=== PATIENT | male | born 1985 | race Caucasian/White ===

== ENCOUNTER 2020-04-29 11:25 | Outpatient (REF) | payer OTHER, SELFPAY ==
[2020-04-30 04:30] LABS: Syphilis Screen Nonreactive (Nonreactive)
[2020-04-30 04:46] LABS: HIV AB/AG Nonreactive (Nonreactive); HIV Num 1 0.05 S/CO (0.00-0.99)
[2020-04-30 17:47] LABS: Herpes Simplex Type 1 IgG <0.90 index; Herpes Simplex Type 2 IgG <0.90 index
[2020-05-06 18:17] LABS: Chlamydia Pneumoniae IgA <1:16 titer (<1:16); Chlamydia Pneumoniae IgM <1:10 titer (<1:10); Chlamydia Psittaci IgA <1:16 titer (<1:16); Chlamydia Psittaci IgG <1:64 titer (<1:64); Chlamydia Psittaci IgM <1:10 titer (<1:10); Chlamydia Trachomatis IgA <1:16 titer (<1:16); Chlamydia Trachomatis IgG <1:64 titer (<1:64); Chlamydia Trachomatis IgM <1:10 titer (<1:10)
== END 2020-04-29 11:26 | disposition home or self-care (01) ==
LOC: HO.LAB 11:25
PROVIDERS: PCP Internal Medicine; Visit Provider Nurse Practitioner Family
DX: Z11.3 Encounter for screening for infections with a predominantly sexual mode of transmission (principal); Z11.8 Encounter for screening for other infectious and parasitic diseases; Z11.4 Encounter for screening for human immunodeficiency virus [HIV]
CPT/HCPCS: 36415; 86631; 86632; 86695; 86696; 86780; 87389

== ENCOUNTER 2021-11-23 14:13 | Outpatient (REF) | payer OTHER, SELFPAY ==
[2021-11-23 14:34] LABS: MANUAL DIFF FLAG NO
[2021-11-23 14:42] LABS: Basophils Absolute Auto 0.1 X10*3/uL (0.0-0.2); Basophils Percent Auto 0.8 % (0-2); Eosinophils Absolute Auto 0.1 X10*3/uL (0.0-0.4); Eosinophils Percent Auto 1.6 % (0-4); Hematocrit 46.7 % (42.0-52.0); Hemoglobin 16.2 g/dl (14.0-18.0); Imm Gran Abs Auto 0.04 X10*3/uL (0.00-0.03); Imm Gran Pct Auto 0.5 % (0.0-0.4); Mean Corpuscular HGB Conc 34.7 g/dl (31.0-36.0); Mean Corpuscular Hemoglobin 29.7 pg (27.0-33.0); Mean Corpuscular Volume 85.5 fL (80.0-98.0); Mean Platelet Volume 9.6 fL (9.4-12.4); Monocytes Absolute Auto 0.4 X10*3/uL (0.1-1.2); Monocytes Percent Auto 4.9 % (2-11); Neutrophils Absolute Auto 4.4 x10*3/uL (2.0-8.3); Neutrophils Percent Auto 55.2 % (45-73); Platelet Count 196 X10*3/uL (160-400); Red Blood Count 5.46 X10*6/uL (4.60-5.80); Red Cell Distribution Width 13.5 % (11.0-16.0)
[2021-11-23 15:17] LABS: Alanine Aminotransferase 41 U/L (0-40); Albumin Level 4.6 g/dL (3.5-5.0); Alkaline Phosphatase 92 U/L (39-117); Anion Gap 17 (12-20); Aspartate Amino Transferase 27 U/L (5-37); Bilirubin Total 0.5 mg/dL (0.0-1.0); Blood Urea Nitrogen 11 mg/dL (9-16); Carbon Dioxide 20 mmol/L (22-29); Chloride 105 mmol/L (96-108); Cholesterol 179 mg/dL; Estimated Glomerular Filt Rate > 60; Glucose Fasting 91 mg/dL (60-99); HDL Cholesterol 33 mg/dL; LDL Cholesterol Calculated 128 mg/dl; Potassium 4.3 mmol/L (3.3-5.1); Sodium 138 mmol/L (135-145); Total Protein 7.3 g/dL (6.5-8.0); Triglycerides 93 mg/dL
[2021-11-23 15:27] LABS: TSH reflex Free T4 1.08 uIU/mL (0.32-4.0); Vitamin D 25-OH Total 3.8 ng/mL (>30)
[2021-11-23 17:10] LABS: Appearance Urine Clear; Color Urine Yellow; Glucose Urine UA Negative (Negative); Leukocyte Esterase Urine Negative (Negative); Nitrite Urine Negative (Negative); PH 5.5 (5.0-9.0); Specific Gravity - Urine >= 1.030 (1.005-1.025); UMIC TRIGGER UACC YES; Urine Blood Trace (Negative); Urine Ketones Trace mg/dL (Negative); Urine Protein Trace mg/dL (Neg-Trace)
[2021-11-23 17:29] LABS: Bacteria Urine None Seen (None Seen); Hyaline Casts Urine 0-2 /LPF (0-2); RBC Urine 0-2 /HPF (0-2); Squamous Epithelial Cell Urine 0-2 /HPF (0-2); WBC Urine 0-5 /HPF (0-5)
== END 2021-11-23 14:14 | disposition home or self-care (01) ==
LOC: HO.LAB 14:13
PROVIDERS: PCP Internal Medicine; Visit Provider Internal Medicine
DX: E55.9 Vitamin D deficiency, unspecified (principal); E78.00 Pure hypercholesterolemia, unspecified; I10 Essential (primary) hypertension
CPT/HCPCS: 36415; 80053; 80061; 81001; 81003; 82306; 84443; 85025

== ENCOUNTER 2022-05-30 14:34 | Outpatient (REF) | payer OTHER, SELFPAY ==
--- NOTE | ~2022-05-30 | XR_ITS ---
EXAMINATION: XR RIBS, RIGHT CLINICAL INFORMATION: Chest radiographs dated 11/20/2016. COMPARISON: None available. TECHNIQUE: 3 views of the right ribs were obtained. FINDINGS: Lungs are clear. No consolidation, pneumothorax, or pleural effusion. The cardiomediastinal silhouette and pulmonary vasculature are normal. Osseous structures are unremarkable. Ribs are intact. No fractures are identified. XR/XR ribs RT min 3V w CXR1V IMPRESSION: Unremarkable examination.
--- NOTE | ~2022-05-30 | US_ITS ---
EXAMINATION: US VENOUS ULTRASOUND WITH DOPPLER LOWER EXTREMITY, LEFT CLINICAL INFORMATION: Pain COMPARISON: None available. TECHNIQUE: Ultrasound of the deep veins is performed from the hip to the calf with compression sonography and color and pulse Doppler assessment. Spectral analysis with color-flow imaging is performed. FINDINGS: There is normal venous compression and respiratory variation and augmented flow. The visualized common femoral vein, superficial femoral vein, profunda femoral vein, popliteal vein, and the trifurcation region shows no evidence of deep venous thrombosis. There is no significant popliteal fossa cyst. If the patient's symptoms persist, followup ultrasound in 5 days 7 days might be of value to exclude proximal propagation from a non-visualized calf vein. US/US venous duplex LE LT IMPRESSION: No DVT demonstrated in the left lower extremity.
[2022-05-30 17:16] LABS: D Dimer High Sensitivity 217 NG/ML
[2022-05-30 17:31] LABS: Alanine Aminotransferase 40 U/L (0-40); Albumin Level 4.5 g/dL (3.5-5.0); Alkaline Phosphatase 85 U/L (39-117); Anion Gap 16 (12-20); Aspartate Amino Transferase 28 U/L (5-37); B Type Natriuretic Peptide 18 pg/mL (<100); Bilirubin Total 0.5 mg/dL (0.0-1.0); Blood Urea Nitrogen 11 mg/dL (9-16); Calcium 9.3 mg/dL (8.4-10.2); Carbon Dioxide 23 mmol/L (22-29); Chloride 104 mmol/L (96-108); Estimated Glomerular Filt Rate > 60; Glucose Random 76 mg/dL (60-115); Potassium 4.1 mmol/L (3.3-5.1); Sodium 139 mmol/L (135-145); Total Protein 7.1 g/dL (6.5-8.0)
[2022-05-30 17:53] LABS: Erythrocyte Sedimentation Rate 1 MM/HR (0-15)
== END 2022-05-30 14:35 | disposition home or self-care (01) ==
LOC: HO.US 14:34
PROVIDERS: PCP Internal Medicine; Visit Provider Internal Medicine
DX: M79.605 Pain in left leg (principal); M79.89 Other specified soft tissue disorders; I50.9 Heart failure, unspecified; R60.9 Edema, unspecified; M79.7 Fibromyalgia; T18.9XXA Foreign body of alimentary tract, part unspecified, initial encounter; R07.81 Pleurodynia
CPT/HCPCS: 36415; 71101; 80053; 83880; 85379; 85652; 93971

== ENCOUNTER 2022-09-08 15:29 | Outpatient (AMB) | payer OTHER, SELFPAY ==
[2022-09-08 15:35] VITALS: BP 142/80; PULSE 89; O2SAT 96; BMI 39.8
--- NOTE | 2022-09-08 15:35 | MHC.PC.OV ---
Vital Signs 09/08/22 15:35 Height 5 ft 7 in Weight 254 lb BMI 39.8 BP 142/80 H Blood Pressure Location Lt brachial Position Sitting Pulse 89 Pulse Source Pulse Oximeter Pulse Oximetry (%) 96 Oxygen Delivery Method Room Air Intake Visit Reasons: 3 month f/u Allergies acetaminophen [Tylox] Allergy (Unknown, Verified 09/08/22 16:14) swelling, rash Iodinated Contrast Media Allergy (Unknown, Verified 09/08/22 16:14) breathing problems oxycodone [Tylox] Allergy (Unknown, Verified 09/08/22 16:14) swelling, rash Medication List - Last Reconciled 09/08/22 by Jairon Rodriguez MD albuterol sulfate 90 mcg/actuation (Ventolin HFA) 2 puffs PO QID 30 days carisoprodol 350 mg PO QID PRN 28 days NS cetirizine 10 mg PO DAILY fluocinonide 0.05% 1 appl topical BID PRN fluticasone propionate 50 mcg/actuation 1 spray intranasal DAILY inhalational spacing device As directed ipratropium-albuterol 0.5 mg-3 mg(2.5 mg base)/3 mL 3 mL inhalation Q4H PRN ketoconazole 1% (Nizoral A-D) 1 appl topical 2XW 6 weeks montelukast (Singulair) 10 mg PO DAILY morphine 15 mg PO Q6H PRN 28 days morphine ER 30 mg PO Q12H 28 days naloxone 4 mg/actuation (Narcan) 4 mg intranasal Q2M PRN [NEBULIZER and all related supplies Use as directed] ProAir HFA 90 mcg/actuation (albuterol sulfate) 2 puffs inhalation Q6H PRN 30 days NS Symbicort 160-4.5 mcg/actuation (budesonide-formoterol) 2 puffs inhalation BID NS Tobacco use date assessed: 05/30/22 Dental Screening Dental Screen Date: 09/08/22 Did you have a dental visit in the last 12 months?: No Did you have a dental problem in the last 6 months where you did not have access to dental care?: No Was dental information given to patient?: No HPI 3 month f/u HPI Details Patient comes in today for his follow up visit States that he continues to experience chronic increased nasal and sinus congestion States that he and his family recently had to move out of their house after a recent inspection determined that the house that they have been living in for a long time is now on and have a double and can no longer be remediated and his previously scheduled sinus surgery at [facility] in [place] had to be canceled and postponed for now States that they have been living out of a local hotel room for the past couple of months now He denies any headaches or dizziness Denies any chest pains but states that his asthma has been acting up often lately and he needs to get a prescription for a new nebulizer No nausea/ vomiting; still has on and off abdominal pain States that he still has not been able to pass the piece of plastic fork that he supposedly swallowed several weeks ago States that he went to the ER at [facility] and they ordered some imaging studies on him but was told that they could not see any evidence of foreign object in his bowels No change in bowel habits noted but states that he still has on and off blood in the stool and he strongly believes that the piece of plastic for is still lodged somewhere in his bowels States that his chronic low back pain and joint pains remain adequately controlled on his current medications [facility] Medical History Asthma Chronic pansinusitis Depression Epilepsy Exposure to STD GERD without esophagitis Lumbar degenerative disc disease Obesity (BMI 30-39.9) Osteoporosis Pure hypercholesterolemia Scalp psoriasis Surgical History History of sinus surgery History of surgery Family History Father Medical history unknown Mother Cancer Social History Housing: House Alcohol intake: never Patient Tobacco Use Status: Never used Tobacco e-Cigarette/Vaping Use: Never Used Second Hand Smoke Exposure: Yes service: No Current occupational status: employed Current occupation: [employer] Cognitive needs: No Hearing needs: No Vision needs: No Questionnaire PHQ-9 Over the last 2 weeks, how often have you been bothered by any of the following problems? 1. Little interest or pleasure in doing things: several days 2. Feeling down, depressed, or hopeless: several days 3. Trouble falling or staying asleep, or sleeping too much: several days 4. Feeling tired or having little energy: several days 5. Poor appetite or overeating: not at all 6. Feeling bad about yourself - or that you are a failure or have let yourself or your family down: not at all 7. Trouble concentrating on things, such as reading the newspaper or watching television: not at all 8. Moving or speaking so slowly that other people could have noticed. Or the opposite - being so fidgety or restless that you have been moving around a lot more than usual: not at all 9. Thoughts that you would be better off or of hurting yourself in some way: not at all Total score: 4 Depression Screening Interpretation: Positive Depression Screening Follow-up: Existing condition and Follow-up Visit Requested [id number] - PHQ-9 Billing: Yes Source: Developed by Drs. Wily Narayanan, Emily Reynaga, Damian Kan and colleagues, with an educational chi from [employer]. Thrive Questionnaire Date Thrive assessed: 05/30/22 AUDIT C Alcohol Use Questionnaire (AUDIT-C) 1. How often do you have a drink containing alcohol?: Never 3. How often do you have six or more drinks on one occasion?: Never Total Score: 0 Score Reviewed/Action Taken: Yes DIMITRY-7 AMB Questionnaire DIMITRY-7 Date DIMITRY - 7 assessed: 05/30/22 Source: Developed by Drs. Wily Narayanan, Emily Reynaga, Damian Kan and colleagues, with an educational chi from [employer]. Review of Systems Const Reports fatigue, Denies fever(s) and Denies headache(s) ENT Denies dysphagia, Denies dizziness, Denies headache(s), Reports nasal congestion (on and off), Denies nasal discharge, Reports neck pain, Denies sinus pressure and Denies sore throat Card Denies chest pain, Denies palpitations and Reports dyspnea on exertion (on and off lately) Resp Reports chest congestion, Reports cough (on and off), Reports dyspnea on exertion (on and off lately) and Reports wheezing (at times) GI Reports abdominal pain (on and off over the RLQ), Reports hematochezia (at times ), Denies constipation, Denies dysphagia, Denies heartburn, Denies diarrhea, Denies nausea and Denies vomiting Denies dysuria, Denies nocturia and Denies urinary frequency Musc Reports back pain (chronic - increasing) and Reports neck pain Neuro Denies dizziness and Denies headache(s) Endo Reports fatigue and Denies palpitations Alexei/Lymph Details: increased swelling of the left leg and left foot Aller/Immun Reports wheezing (at times) Physical exam (Primary Care) Vital Signs: Last Vital Signs Pulse 89 09/08/22 15:35 BP 142/80 H 09/08/22 15:35 Pulse Ox 96 09/08/22 15:35 Oxygen Delivery Method Room Air 09/08/22 15:35 BMI result Body Mass Index 39.8 Tobacco/Smoking Status: Tobacco use Status Tobacco use date assessed 05/30/22 09/08/22 15:39 Patient Tobacco Use Status Never used Tobacco 09/08/22 15:39 e-Cigarette/Vaping Use Never Used 09/08/22 15:39 PHQ-9: PHQ-9 Score PHQ-9: Total score 4 09/10/22 11:13 Depression Screening Interpretation: Positive Depression Screening Follow-up: Existing condition and Follow-up Visit Requested Thrive Assessment: Date of Thrive Assessment Date Thrive assessed 05/30/22 09/08/22 15:39 Const General: no acute distress and alert HENMT Ears: TM's normal bilaterally and EAC's normal Throat: Yes posterior oropharynx normal and Yes tonsils normal (no TP congestion noted) Neck Neck: Yes no lymphadenopathy and Yes supple Resp Auscultation: no rales, rhonchi (scattered), wheezes (mild, occasionally) expiratory wheezes and diminished lung sounds bilateral Cardio Rate: regular rate Rhythm: regular rhythm Heart sounds: no murmurs GI Palpation (GI): Soft to palpation, Tenderness to palpation present (GI) in the RLQ (mild), no guarding, not rigid and No Rebound tenderness present Auscultation: normal bowel sounds Back/Spine/Pelvis Thoracic/Lumbar Spine: lumbar spinal tenderness Extrem General: Yes edema (3+ over the left lower leg and foot; 1+ over the right lower extremity) Assessment and Plan Assessment & Plan (1) Asthma: Code(s): J45.909 - Unspecified asthma, uncomplicated Qualifiers: Asthma complication type: uncomplicated Asthma persistence: persistent Asthma severity: moderate Qualified Code(s): J45.40 - Moderate persistent asthma, uncomplicated Plan: Patient's asthma appears to be acting up again lately Continue Symbicort Aerosol, 160-4.5 MCG/ACT, 2 puffs, Inhalation, Twice a day and Albuterol Sulfate HFA Aerosol Solution, 108 (90 Base) MCG/ACT, 2 puffs, Inhalation, four times a day as needed Per request, will provide with Rx for a nebulizer unit - instructed to start using his nebulizer QID PRN as soon as he gets it (2) Pure hypercholesterolemia: Code(s): E78.00 - Pure hypercholesterolemia, unspecified Plan: Reinforced low cholesterol diet Will recheck his labs in 3 months for follow-up (3) Lumbar degenerative disc disease: Code(s): M51.36 - Other intervertebral disc degeneration, lumbar region Plan: Reinforced activity and weight lifting restrictions MRI of the brain done last year (neurology wanted to be certain that his right leg (radicular) symptoms are not due to MS) reportedly came back normal Continue MS Contin Tablet Extended Release 12 Hour, 30 MG, 1 tablet, Orally, every 12 hrs, 28 days, 56 tablets, Refills 0, Morphine Sulfate Tablet, 15 MG, 1 tablet, Orally, 3 to 4 times a day as needed for increased pain, 28 days, 112 tablets, Refills 0 and Soma Tablet, 350 MG, 1 tablet, Orally, Four times a day as needed, 28 days, 112 tablets (4) Swallowed foreign body: Code(s): T18.9XXA - Foreign body of alimentary tract, part unspecified, initial encounter Qualifiers: Encounter type: sequela Qualified Code(s): T18.9XXS - Foreign body of alimentary tract, part unspecified, sequela Plan: Was worked up at the ER at [facility] a few months ago but they were unsuccessful in locating the broken off piece of plastic fork Patient went back a week later and had abdominal and pelvic CT with contrast this time but imaging studies came back negative Was advised that unless they can visualized the foreign body on imaging studies, there is not much they can do at this time (5) GERD without esophagitis: Code(s): K21.9 - Gastro-esophageal reflux disease without esophagitis Plan: Dietary restrictions reinforced (6) Chronic pansinusitis: Comment: S/P maxillary antrostomy and total ethmoidectomy back in September 2018, with significant improvement of his chronic symptoms initially - symptoms have been recurring frequently since Code(s): J32.4 - Chronic pansinusitis Plan: Continues to experience frequent/recurrent sinus congestion and pain despite surgical intervention Continue Moxifloxacin 400 mg QD Was seen and evaluated by ENT at [facility] in [place] for his chronic sinus congestion and was scheduled for corrective surgery there a few weeks ago but this was canceled due to his current housing issues States that he will call to reschedule once he is able to (7) Osteoporosis: Code(s): M81.0 - Age-related osteoporosis without current pathological fracture Qualifiers: Osteoporosis type: unspecified Presence of current pathological fracture: without current pathological fracture Qualified Code(s): M81.0 - Age-related osteoporosis without current pathological fracture Plan: BMD done back in 2015 showed significantly low BMD for his age Patient has not been taking his Actonel for a while now as he was unable to tolerate it Follow up with endocrinology as scheduled for management of his osteoporosis (8) Epilepsy: Code(s): G40.909 - Epilepsy, unspecified, not intractable, without status epilepticus Qualifiers: Epilepsy type: unspecified Intractability: not intractable Status epilepticus: without status epilepticus Qualified Code(s): G40.909 - Epilepsy, unspecified, not intractable, without status epilepticus Plan: Denies any seizures lately Follow up with neurology as scheduled (9) Depression: Code(s): F32.9 - Major depressive disorder, single episode, unspecified Qualifiers: Active/Remission status: currently active Depression Type: major depressive disorder Major depression episode severity: unspecified Major depression recurrence: recurrent Qualified Code(s): F33.9 - Major depressive disorder, recurrent, unspecified Plan: Was on Sertraline HCl Tablet, 50 MG QD in the past but patient apparently stopped taking it at some point although he is not sure exactly when States that he currently feels okay without any Rx for his mood Follow-up with Psychiatry as scheduled. (10) Obesity (BMI 30-39.9): Code(s): E66.9 - Obesity, unspecified Plan: Reinforced diet/exercise as tolerated/lose weight Plan Follow up in 3 months or PRN Orders: Orders Complete Blood Count Auto Diff 3 Months I10 - Essential (primary) hypertension Comprehensive [place]. Panel Fast 3 Months E78.00 - Pure hypercholesterolemia, unspecified Lipid Panel 3 Months E78.00 - Pure hypercholesterolemia, unspecified Microalbumin, Random (w Creat) 3 Months E11.9 - Type 2 diabetes mellitus without complications TSH reflex Free T4 3 Months E78.00 - Pure hypercholesterolemia, unspecified UA CC w/rflx Micro + Cult 3 Months R30.0 - Dysuria Vitamin D 25-OH Total 3 Months E55.9 - Vitamin D deficiency, unspecified Medications: Refilled [NEBULIZER and all related supplies] Use as directed 1 ea 0RF J45.40 - Moderate persistent asthma, uncomplicated Coding Level of Care Code Est Pt Level 4 (79707) Diagnoses Asthma J45.40 Asthma complication type: uncomplicated Asthma persistence: persistent Asthma severity: moderate Pure hypercholesterolemia E78.00 Lumbar degenerative disc disease M51.36 Swallowed foreign body T18.9XXS Encounter type: sequela GERD without esophagitis K21.9 Chronic pansinusitis J32.4 Osteoporosis M81.0 Osteoporosis type: unspecified Presence of current pathological fracture: without current pathological fracture Epilepsy G40.909 Epilepsy type: unspecified Intractability: not intractable Status epilepticus: without status epilepticus Depression F33.9 Active/Remission status: currently active Depression Type: major depressive disorder Major depression episode severity: unspecified Major depression recurrence: recurrent Obesity (BMI 30-39.9) E66.9
== END 2022-09-08 16:29 | disposition home or self-care (01) ==
PROVIDERS: PCP Internal Medicine; Visit Provider Internal Medicine
DX: J45.40 Moderate persistent asthma, uncomplicated (principal); K21.9 Gastro-esophageal reflux disease without esophagitis; G40.909 Epilepsy, unspecified, not intractable, without status epilepticus; F33.9 Major depressive disorder, recurrent, unspecified; E78.00 Pure hypercholesterolemia, unspecified; M51.36 Other intervertebral disc degeneration, lumbar region; T18.9XXS Foreign body of alimentary tract, part unspecified, sequela; J32.4 Chronic pansinusitis; M81.0 Age-related osteoporosis without current pathological fracture; E66.9 Obesity, unspecified
CPT/HCPCS: 99214

== ENCOUNTER 2023-03-12 15:36 | Outpatient (AMB) | payer OTHER, SELFPAY ==
[2023-03-12 15:49] VITALS: BP 124/80; PULSE 86; O2SAT 94; BMI 39.5
--- NOTE | 2023-03-12 15:49 | MHC.PC.OV ---
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: No Accompanied by: Self / Same As Patient Allergies acetaminophen [Tylox] Allergy (Unknown, Verified 03/12/23 17:09) swelling, rash Iodinated Contrast Media Allergy (Unknown, Verified 03/12/23 17:09) breathing problems oxycodone [Tylox] Allergy (Unknown, Verified 03/12/23 17:09) swelling, rash Medication List - Last Reconciled 03/13/23 by Jairon Rodriguez MD albuterol sulfate 90 mcg/actuation (Ventolin HFA) 2 puffs PO QID 30 days carisoprodol 350 mg PO QID PRN 28 days NS cetirizine 10 mg PO DAILY fluocinonide 0.05% 1 appl topical BID PRN fluticasone propionate 50 mcg/actuation 1 spray intranasal DAILY inhalational spacing device As directed ipratropium-albuterol 0.5 mg-3 mg(2.5 mg base)/3 mL 3 mL inhalation Q4H PRN montelukast (Singulair) 10 mg PO DAILY morphine 15 mg PO Q6H PRN 28 days morphine ER 30 mg PO Q12H 28 days naloxone 4 mg/actuation (Narcan) 4 mg intranasal Q2M PRN [NEBULIZER and all related supplies Use as directed] Symbicort 160-4.5 mcg/actuation (budesonide-formoterol) 2 puffs inhalation BID NS Tobacco use date assessed: 03/12/23 Dental Screening Dental Screen Date: 03/12/23 Did you have a dental visit in the last 12 months?: No Did you have a dental problem in the last 6 months where you did not have access to dental care?: No Was dental information given to patient?: No HPI 3mon f/u HPI Details Patient comes in today for his follow up visit States that he has been experiencing increasing pain in his right hip for the past few months He describes his hip pain as a feeling that he is sitting on broken glass and notes that the pain feels worse the longer he is on his feet He does not recall any recent injury or trauma to his right hip States that he continues to experience increased (chronic) nasal and sinus congestion and he has yet to contact [facility] in [place] to reschedule his sinus surgery, which he had to cancel last year when he and his family recently had to move out of their house when it was condemned and determined to no longer safe to live in States that they finally able to recently moved out of the hotel that they were living in into a rental and that he will try to contact [facility] to reschedule his surgery as soon as possible He denies any headaches or dizziness lately Denies any chest pains, no increased shortness of breath No nausea/ vomiting, no abdominal pain No change in bowel habits noted States that his chronic low back pain and joint pains remain adequately controlled on his current medications Admits that he did not get his previously ordered labs done as he forgot about them [facility] Medical History Obesity (BMI 30-39.9) Depression Epilepsy Osteoporosis GERD without esophagitis Lumbar degenerative disc disease Pure hypercholesterolemia Asthma Scalp psoriasis Exposure to STD Chronic pansinusitis Surgical History History of surgery History of sinus surgery Family History Father Medical history unknown Mother Cancer Social History Housing: House Alcohol intake: never Patient Tobacco Use Status: Never used Tobacco e-Cigarette/Vaping Use: Never Used Second Hand Smoke Exposure: Yes service: No Current occupational status: employed Current occupation: [employer] Cognitive needs: No Hearing needs: No Vision needs: No Questionnaire PHQ-9 Over the last 2 weeks, how often have you been bothered by any of the following problems? 1. Little interest or pleasure in doing things: several days 2. Feeling down, depressed, or hopeless: several days 3. Trouble falling or staying asleep, or sleeping too much: several days 4. Feeling tired or having little energy: several days 5. Poor appetite or overeating: not at all 6. Feeling bad about yourself - or that you are a failure or have let yourself or your family down: not at all 7. Trouble concentrating on things, such as reading the newspaper or watching television: not at all 8. Moving or speaking so slowly that other people could have noticed. Or the opposite - being so fidgety or restless that you have been moving around a lot more than usual: not at all 9. Thoughts that you would be better off or of hurting yourself in some way: not at all Total score: 4 Depression Screening Interpretation: Positive Depression Screening Follow-up: Existing condition, Follow-up Visit Requested and Declines treatment Depression Screening Done: Yes [id number] - PHQ-9 Billing: Yes Source: Developed by Drs. Wily Narayanan, Emily Reynaga, Damian Kan and colleagues, with an educational chi from [employer]. Thrive Questionnaire Date Thrive assessed: 03/12/23 I am a: Patient What is your living situation today?: I have a steady place to live Within the past 12 months, did the food you bought not last and you didn't have the money to get more?: Never true Within the past 12 months, did you worry whether your food would run out before you got money to buy more?: Never true Do you have trouble paying for medicines?: No Do you have trouble getting transportation to medical appointments?: No Do you have trouble paying your heating and electricity bill?: No Do you have trouble taking care of your child, family member or friend?: No Do you have trouble with day-to-day activities such as bathing, preparing meals, shopping, managing finances, etc.?: No Are you currently unemployed and looking for a job?: No Are you interested in more education?: No Please select the resources that you would like help with: None Currently or been in a relationship where the following occur: no concerns reported THRIVE Score: 0 AUDIT C Alcohol Use Questionnaire (AUDIT-C) 1. How often do you have a drink containing alcohol?: Never 3. How often do you have six or more drinks on one occasion?: Never Total Score: 0 Score Reviewed/Action Taken: Yes DIMITRY-7 AMB Questionnaire DIMITRY-7 Date DIMITRY - 7 assessed: 03/12/23 Feeling nervous, anxious, or on edge: 0 = Not at all Not being able to stop or control worryin = Not at all Worrying too much about different things: 0 = Not at all Trouble relaxin = Not at all Being so restless that it is hard to sit still: 0 = Not at all Becoming easily annoyed or irritable: 0 = Not at all Feeling afraid as if something awful might happen: 0 = Not at all Total DIMITRY-7 score (0-4 normal; 5-9 mild; 10-14 moderate; 15-21 severe): 0 Source: Developed by Drs. Wily Narayanan, Emily Reynaga, Damian Kan and colleagues, with an educational chi from [employer]. Review of Systems Const Denies chills, Reports fatigue, Denies fever(s) and Denies headache(s) ENT Denies dysphagia, Denies dizziness, Denies headache(s), Reports nasal congestion (on and off), Denies nasal discharge, Reports neck pain, Denies odynophagia, Denies sinus pressure and Denies sore throat Card Denies chest pain, Denies palpitations and Reports dyspnea on exertion (occasionally, usually when his asthma flares up) Resp Denies chest congestion, Denies cough, Denies pain on inspiration, Reports dyspnea on exertion (occasionally, usually when his asthma flares up) and Denies wheezing GI Denies abdominal pain, Denies constipation, Denies dysphagia, Denies heartburn, Denies diarrhea, Denies nausea, Denies odynophagia and Denies vomiting Denies dysuria, Denies nocturia and Denies urinary frequency Musc Reports back pain (chronic - increasing) and Reports neck pain Skin/Breast Denies rash Neuro Denies dizziness and Denies headache(s) Endo Reports fatigue and Denies palpitations Alexei/Lymph Details: increased swelling of the left leg and left foot Aller/Immun Denies wheezing Physical exam (Primary Care) Vital Signs: Last Vital Signs Pulse 86 03/12/23 15:49 BP 124/80 03/12/23 15:49 Pulse Ox 94 03/12/23 15:49 Oxygen Delivery Method Room Air 03/12/23 15:49 BMI result Body Mass Index 39.5 Tobacco/Smoking Status: Tobacco use Status Tobacco use date assessed 03/12/23 03/12/23 15:51 Patient Tobacco Use Status Never used Tobacco 03/12/23 15:51 e-Cigarette/Vaping Use Never Used 03/12/23 15:51 PHQ-9: PHQ-9 Score PHQ-9: Total score 4 03/12/23 17:12 Depression Screening Interpretation: Positive Depression Screening Follow-up: Existing condition, Follow-up Visit Requested and Declines treatment Thrive Assessment: Date of Thrive Assessment Date Thrive assessed 03/12/23 03/12/23 15:51 Currently or been in a relationship where the following occur: no concerns reported Const General: no acute distress and alert HENMT Ears: TM's normal bilaterally and EAC's normal Throat: Yes posterior oropharynx normal and Yes tonsils normal (no TP congestion noted) Neck Neck: Yes no lymphadenopathy and Yes supple Resp Auscultation: clear to auscultation bilaterally, no crackles, no rales and no wheezes Cardio Rate: regular rate Rhythm: regular rhythm Heart sounds: no murmurs GI Palpation (GI): Soft to palpation and nontender Auscultation: normal bowel sounds General: Yes no CVA tenderness Back/Spine/Pelvis Back: no CVA tenderness Thoracic/Lumbar Spine: lumbar spinal tenderness Skin Rashes: no rashes Extrem General: Yes no clubbing, cyanosis or edema Right lower extremity: hip/thigh Details: tenderness Location: of the hip Assessment and Plan Assessment & Plan (1) Right hip pain: Code(s): M25.551 - Pain in right hip Plan: Will send patient for x-rays of the right hip for further evaluation (2) Asthma: Code(s): J45.909 - Unspecified asthma, uncomplicated Qualifiers: Asthma complication type: uncomplicated Asthma persistence: persistent Asthma severity: moderate Qualified Code(s): J45.40 - Moderate persistent asthma, uncomplicated Plan: Patient's asthma appears to be better controlled lately Continue Symbicort 160-4.5 mcg 2 inhalations BID and Albuterol Sulfate HFA Aerosol Solution, 108 (90 Base) MCG/ACT, 2 inhalations Q 6 hours PRN (3) Pure hypercholesterolemia: Code(s): E78.00 - Pure hypercholesterolemia, unspecified Plan: Reinforced low cholesterol diet Will recheck his labs and fasting lipids ALVARADO for follow-up - his previous lab orders are updated (4) Lumbar degenerative disc disease: Code(s): M51.36 - Other intervertebral disc degeneration, lumbar region Plan: Reinforced activity and weight lifting restrictions Patient had MRI of the brain done a couple of years ago as neurology wanted to be certain that his right leg (radicular) symptoms are not due to MS - MRI reportedly came back normal Continue MS Contin ER 30 MG Q 12 hours, Morphine Sulfate 15 MG 3 to 4 times a day as needed for increased pain and Soma 350 MG four times a day as needed (5) GERD without esophagitis: Code(s): K21.9 - Gastro-esophageal reflux disease without esophagitis Plan: Dietary restrictions reinforced (6) Chronic pansinusitis: Comment: S/P maxillary antrostomy and total ethmoidectomy back in September 2018, with significant improvement of his chronic symptoms initially - symptoms have been recurring frequently since Code(s): J32.4 - Chronic pansinusitis Plan: Patient continues to experience frequent/recurrent sinus congestion and pain despite past surgical intervention He was seen and evaluated by ENT at [facility] in [place] for his chronic sinus congestion and was scheduled for corrective surgery there last year but patient canceled his surgery due to housing issues with his family States that he will call them to reschedule his surgery once everything has settled down and he feels ready to get the surgery done (7) Osteoporosis: Code(s): M81.0 - Age-related osteoporosis without current pathological fracture Qualifiers: Osteoporosis type: unspecified Presence of current pathological fracture: without current pathological fracture Qualified Code(s): M81.0 - Age-related osteoporosis without current pathological fracture Plan: BMD done back in 2015 showed significantly low BMD for his age Patient has not been taking his Actonel for a while now as he was unable to tolerate it Follow up with endocrinology as scheduled for management of his osteoporosis (8) Epilepsy: Code(s): G40.909 - Epilepsy, unspecified, not intractable, without status epilepticus Qualifiers: Epilepsy type: unspecified Intractability: not intractable Status epilepticus: without status epilepticus Qualified Code(s): G40.909 - Epilepsy, unspecified, not intractable, without status epilepticus Plan: Patient denies having any seizures lately Follow up with neurology as scheduled (9) Depression: Code(s): F32.9 - Major depressive disorder, single episode, unspecified Qualifiers: Active/Remission status: currently active Depression Type: major depressive disorder Major depression episode severity: unspecified Major depression recurrence: recurrent Qualified Code(s): F33.9 - Major depressive disorder, recurrent, unspecified Plan: Was on Sertraline HCl Tablet, 50 MG QD in the past but patient apparently stopped taking it at some point although he is not sure exactly when States that he currently feels okay without any Rx for his mood Follow-up with Psychiatry as scheduled. (10) Obesity (BMI 30-39.9): Code(s): E66.9 - Obesity, unspecified Plan: Reinforced diet/exercise as tolerated/lose weight Plan Follow up in 3 months Orders: Orders XR hip RT min 2V 03/12/23 M25.551 - Pain in right hip Coding Level of Care Code Est Pt Level 4 (29019) Diagnoses Right hip pain M25.551 Moderate persistent asthma without complication J45.40 Asthma complication type: uncomplicated Asthma persistence: persistent Asthma severity: moderate Pure hypercholesterolemia E78.00 Lumbar degenerative disc disease M51.36 GERD without esophagitis K21.9 Chronic pansinusitis J32.4 Osteoporosis without current pathological fracture, unspecified osteoporosis type M81.0 Osteoporosis type: unspecified Presence of current pathological fracture: without current pathological fracture Nonintractable epilepsy without status epilepticus, unspecified epilepsy type G40.909 Epilepsy type: unspecified Intractability: not intractable Status epilepticus: without status epilepticus Episode of recurrent major depressive disorder, unspecified depression episode severity F33.9 Active/Remission status: currently active Depression Type: major depressive disorder Major depression episode severity: unspecified Major depression recurrence: recurrent Obesity (BMI 30-39.9) E66.9
== END 2023-03-12 17:19 | disposition home or self-care (01) ==
PROVIDERS: PCP Internal Medicine; Visit Provider Internal Medicine
DX: G40.909 Epilepsy, unspecified, not intractable, without status epilepticus (principal); F33.9 Major depressive disorder, recurrent, unspecified; E66.9 Obesity, unspecified; Z68.39 Body mass index [BMI] 39.0-39.9, adult; M25.551 Pain in right hip; J45.40 Moderate persistent asthma, uncomplicated; E78.00 Pure hypercholesterolemia, unspecified; M51.36 Other intervertebral disc degeneration, lumbar region; K21.9 Gastro-esophageal reflux disease without esophagitis; J32.4 Chronic pansinusitis; M81.0 Age-related osteoporosis without current pathological fracture
CPT/HCPCS: 99214

== ENCOUNTER 2023-03-13 15:28 | Outpatient (REF) | payer OTHER, SELFPAY ==
--- NOTE | ~2023-03-13 | XR_ITS ---
EXAMINATION: XR HIP, RIGHT CLINICAL INFORMATION: Pain. COMPARISON: Radiographs dated 10/11/2011. TECHNIQUE: AP and frog-leg lateral views of the right hip. FINDINGS: No fracture. Alignment is anatomic. Hip joint space is maintained. Soft tissues are unremarkable. XR/XR hip RT w [id number] IMPRESSION: Normal right hip.
[2023-03-13 15:44] LABS: MANUAL DIFF FLAG NO
[2023-03-13 17:03] LABS: Appearance Urine Clear; Color Urine Yellow; Glucose Urine UA Negative (Negative); Leukocyte Esterase Urine Negative (Negative); Nitrite Urine Negative (Negative); Urine Blood Negative (Negative); Urine Ketones Negative (Negative); Urine Protein Negative (Neg-Trace)
[2023-03-13 17:11] LABS: Basophils Percent Auto 0.5 % (0-2); Eosinophils Absolute Auto 0.2 X10*3/uL (0.0-0.4); Eosinophils Percent Auto 2.7 % (0-4); Hemoglobin 16.4 g/dl (14.0-18.0); Imm Gran Abs Auto 0.04 X10*3/uL (0.00-0.03); Imm Gran Pct Auto 0.5 % (0.0-0.4); Lymphocytes Absolute Auto 3.5 X10*3/uL (1.2-4.9); Lymphocytes Percent Auto 41.4 % (20-40); Mean Corpuscular HGB Conc 34.2 g/dl (31.0-36.0); Mean Corpuscular Hemoglobin 28.9 pg (27.0-33.0); Mean Corpuscular Volume 84.7 fL (80.0-98.0); Monocytes Absolute Auto 0.5 X10*3/uL (0.1-1.2); Monocytes Percent Auto 6.4 % (2-11); Neutrophils Absolute Auto 4.1 x10*3/uL (2.0-8.3); Neutrophils Percent Auto 48.5 % (45-73); Platelet Count 195 X10*3/uL (160-400); Red Blood Count 5.67 X10*6/uL (4.60-5.80); Red Cell Distribution Width 12.9 % (11.0-16.0); White Blood Count 8.4 X10*3/uL (4.8-10.8)
[2023-03-13 17:38] LABS: Alanine Aminotransferase 41 U/L (0-40); Albumin Level 4.3 g/dL (3.5-5.0); Alkaline Phosphatase 74 U/L (39-117); Anion Gap 13 (12-20); Aspartate Amino Transferase 30 U/L (5-37); Bilirubin Total 0.4 mg/dL (0.0-1.0); Blood Urea Nitrogen 10 mg/dL (9-16); Calcium 9.3 mg/dL (8.4-10.2); Carbon Dioxide 27 mmol/L (22-29); Chloride 104 mmol/L (96-108); Cholesterol 218 mg/dL (<200); Estimated Glomerular Filt Rate > 60; Glucose Fasting 85 mg/dL (60-99); HDL Cholesterol 40 mg/dL (>40); LDL Cholesterol Calculated 156 mg/dL (<100); Potassium 3.9 mmol/L (3.3-5.1); Sodium 140 mmol/L (135-145); Total Protein 7.3 g/dL (6.5-8.0); Triglycerides 111 mg/dL (<150)
[2023-03-13 17:51] LABS: Creatinine Urine 188.96 mg/dL; Microalbumin Urine < 5.0 mg/L
[2023-03-13 17:55] LABS: TSH reflex Free T4 0.83 uIU/mL (0.32-4.0); Vitamin D 25-OH Total 7.4 ng/mL (>30)
== END 2023-03-13 15:29 | disposition home or self-care (01) ==
LOC: HO.LAB 15:28
PROVIDERS: PCP Internal Medicine; Visit Provider Internal Medicine
DX: I10 Essential (primary) hypertension (principal); E78.00 Pure hypercholesterolemia, unspecified; E11.9 Type 2 diabetes mellitus without complications; R30.0 Dysuria; E55.9 Vitamin D deficiency, unspecified
CPT/HCPCS: 36415; 73502; 80053; 80061; 81003; 82043; 82306; 82570; 84443; 85025

== ENCOUNTER 2023-03-18 12:59 | Emergency (ER) | payer OTHER, SELFPAY ==
--- NOTE | ~2023-03-18 | CT_ITS ---
EXAMINATION: CT ABDOMEN AND PELVIS WITHOUT CONTRAST CLINICAL INFORMATION: Right groin/hip pain, question fracture, appendicitis, stone COMPARISON: None available. TECHNIQUE: Multidetector volumetric imaging was performed from the superior aspect of the liver through the pubic symphysis. Sagittal and coronal reformatted images were obtained on the technologist's workstation. This CT examination was performed using dose optimization techniques as appropriate, variously including the following: *Automated exposure control *Adjustment of mA and/or kV according to patient size (this includes techniques or standardized protocols for targeted exams where dose is matched to indication/reason for exam; i.e. extremities or head) *Use of iterative reconstruction technique DLP: 855 mGy-cm FINDINGS: Evaluation of solid organs, vascular structures, and bowel wall limited in the absence of intravenous contrast. LUNG BASES: Unremarkable. LIVER AND BILIARY TREE: Mild diffuse hepatic steatosis. GALLBLADDER: Unremarkable. PANCREAS: Marked diffuse pancreatic fatty infiltration/atrophy. SPLEEN: Unremarkable. ADRENAL GLANDS: Unremarkable. KIDNEYS AND URETERS: Unremarkable. GASTROINTESTINAL TRACT: Unremarkable. Normal appendix.. VASCULAR: Circumaortic left renal vein, a normal anatomic variant. Accessory or replaced right renal artery arises from the superior mesenteric artery and accessory left hepatic artery arises from the left gastric artery, also anatomic variants. Otherwise unremarkable. LYMPH NODES: No lymphadenopathy. PERITONEUM: No ascites. BLADDER: Unremarkable. PELVIC VISCERA: Unremarkable. ABDOMINAL AND PELVIC WALL: Unremarkable. Normal appearance of the visualized right inguinal/groin soft tissues. OSSEOUS STRUCTURES: Unremarkable. CT/CT abdomen pelvis wo IV con IMPRESSION: 1. No acute abnormality in the abdomen or pelvis. Specifically, no urinary tract calculi or evidence of appendicitis. 2. Mild diffuse hepatic steatosis. Marked diffuse pancreatic fatty infiltration/atrophy.
[2023-03-18 13:27] VITALS: BP 145/99; PULSE 95; RESP 16; TEMP 36.2; O2SAT 96; BMI 39.5
--- NOTE | 2023-03-18 13:32 | ED_ITS ---
HPI - General Adult General Chief complaint: Extremity Injury, Lower Stated complaint: R leg pain into hip Time Seen by Provider: 03/18/23 17:06 Source: patient Mode of arrival: ambulatory Limitations: no limitations History of Present Illness HPI narrative: 38 yo male with pmhx of osteoarthritis and osteoporosis presents to the ED c/o R hip pain. Pt states pain started 4 weeks ago but become unbearable last night as he felt as if his hip was dislocated, or out of place, and pushed it back in hard . Pt states he is having parasthesia in his loya, outer R thigh and bottom of foot, he is extremely uncomfortable when sitting or lying down. Pt reports an extensive history of sciatic pain and nerve damage to his R hip. He denies any bowel/urinary changes or back pain. Patient states that he follows with pain specialists for chronic pain. Onset (ago): week(s) (4) Location: lower extremity (R hip) Radiation: extremity (radiates to loya, outer thigh, bottom of R foot ) Severity: mild Severity scale (1-10): 3 Quality: burning and stabbing Pain Consistency: constant Relieving factors: none Exacerbating factors: other (sitting down, laying down) Associated symptoms: denies other symptoms Treatments prior to arrival: none Related Data Home Medications Medication Instructions Recorded Confirmed ipratropium 0.5 mg-albuterol 3 mg 3 ml inhalation Q4H PRN 01/20/20 03/12/23 (2.5 mg base)/3 mL nebulization soln montelukast 10 mg tablet 10 mg PO DAILY 01/20/20 03/12/23 (Singulair) Previous Rx's Medication Instructions Recorded albuterol sulfate 90 mcg/actuation 2 puff PO QID 30 days #18 grams 04/07/20 aerosol inhaler (Ventolin HFA) inhalational spacing device #2 ea 04/21/21 fluticasone propionate 50 1 spray intranasal DAILY #16 mL 02/27/22 mcg/actuation nasal spray,suspension naloxone 4 mg/actuation nasal 4 mg intranasal Q2M PRN opioid 05/10/22 spray (Narcan) overdose #2 ea NEBULIZER and all related supplies #1 ea 09/08/22 fluocinonide 0.05 % topical cream 1 appl topical BID PRN rash #60 12/11/22 grams Symbicort 160 mcg-4.5 2 puff inhalation BID #10.2 grams 01/03/23 mcg/actuation HFA aerosol inhaler (budesonide-formoterol) morphine 15 mg immediate release 15 mg PO Q6H PRN pain 28 days #112 02/27/23 tablet tabs cetirizine 10 mg tablet 10 mg PO DAILY #90 tabs 03/04/23 morphine 30 mg tablet,extended 30 mg PO Q12H 28 days #56 tabs 03/06/23 release carisoprodol 350 mg tablet 350 mg PO QID PRN muscle pain 28 03/16/23 days #112 tabs Allergies Allergy/AdvReac Type Severity Reaction Status Date / Time Iodinated Contrast Media Allergy Unknown breathing Verified 03/18/23 13:27 problems oxycodone [Tylox] Allergy Unknown swelling, Verified 03/18/23 13:27 rash Review of Systems 2 Constitutional: Constitutional: Reports no additional constitutional complaints, Denies chills, Denies fever(s) and Denies night sweats Eyes: Eyes: Reports no additional eye complaints, Denies blurry vision, Denies change in vision, Denies diplopia, Denies eye discharge, Denies loss of vision and Denies eye pain ENT: Denies dizziness Cardiovascular: Cardiovascular: Reports no additional cardiovascular complaints, Denies chest pain, Denies lightheadedness, Denies Loss of Consciousness and Denies dyspnea Respiratory: Respiratory: Reports no additional respiratory complaints and Denies dyspnea Gastrointestinal: Gastrointestinal: Reports no additional gastrointestinal complaints, Denies abdominal pain, Denies melena, Denies hematochezia, Denies change in bowel habits and Denies change in stool character Genitourinary: Genitourinary: Reports no additional male genitourinary complaints, Denies hematuria, Denies oliguria, Denies difficulty urinating, Denies dysuria, Denies urinary frequency, Denies urinary hesitancy, Denies urinary incontinence and Denies urinary urgency Musculoskeletal: Musculoskeletal: Reports no additional musculoskeletal complaints, Denies numbness and Denies tingling Comments: right hip pain Neurologic: Denies dizziness, Denies loss of vision, Denies numbness and Denies tingling Psychiatric: Psychiatric: Reports no additional psychiatric complaints Endocrine: Endocrine: Reports no additional endocrine complaints Hematologic/Lymphatic: Hematologic/Lymphatic: Reports no additional hematologic/lymphatic complaints Allergic/Immunologic: Allergic/Immunologic: Reports no additional allergic/immunologic complaints PMFSH Past Medical History Attestation statement: The following information was validated with the patient. Source: old records reviewed and nursing notes reviewed Medical History Obesity (BMI 30-39.9) Depression Epilepsy Osteoporosis GERD without esophagitis Lumbar degenerative disc disease Pure hypercholesterolemia Asthma Scalp psoriasis Exposure to STD Chronic pansinusitis Surgical History History of surgery History of sinus surgery Family History Family History Father Medical history unknown Mother Cancer Social History Social History Housing: House Alcohol intake: never Patient Tobacco Use Status: Never used Tobacco e-Cigarette/Vaping Use: Never Used Second Hand Smoke Exposure: Yes Advance Directives: No Advance Directives Information Provided: Yes service: No Current occupational status: employed 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 Cognitive needs: No Hearing needs: No Vision needs: No Physical Exam ED Vital Signs: Vital Signs - 24 hr 03/18/23 13:27 Temperature 97.1 F Pulse Rate 95 Respiratory Rate 16 Blood Pressure 145/99 H Pulse Oximetry 96 Oxygen Delivery Method Room Air BMI result Body Mass Index 39.5 Const General: cooperative, no acute distress, alert and awake Nutritional Appearance: well nourished Orientation/consciousness: patient oriented x3 Limitations: no limitations HENMT Head: Yes normal to inspection and Yes atraumatic Ears: hearing grossly normal bilaterally and external ears normal General nose exam: Normal external nose present, no nasal discharge noted and no epistaxis Face and sinus: Yes normal facial exam, No abrasion and No laceration Mouth: Normal oral and palatal mucosa present, no drooling and no muffled voice Eyes General: appearance normal, both eyes and all related structures Periorbital: periorbital findings normal Eyelids: Yes eyelids normal Conjunctivae: conjunctivae normal Pupils: Equal, round and reactive pupils present EOM: EOMs intact bilaterally Neck Neck: Yes normal visual inspection, Yes full ROM and Yes no lymphadenopathy Chest Chest palpation & inspection: normal inspection of the chest Resp Effort & Inspection: normal respiratory effort and able to speak in complete sentences GI Inspection: Yes normal to inspection General: Yes no CVA tenderness Back/Spine/Pelvis Back: no CVA tenderness Cervical Spine: normal cervical lordosis Thoracic/Lumbar Spine: thoracic and lumbar spine normal to inspection Pelvis: no pain with anterior-posterior compression Neuro General: patient oriented x3 and moves all extremities Cranial nerves: Yes Equal, round and reactive pupils present Cognition (Neuro): normal cognition Motor exam (neuro): 5/5 motor strength present throughout Sensory Exam: Normal double simultaneous stimulation for sensation Coordination: [id number] test normal Extrem General: Yes normal to inspection, Yes full ROM and Yes capillary refill normal Psych Appearance: grossly normal Mental Status: mental status grossly normal Affect: normal affect Attitude: cooperative Thought process: Normal thought process present Thought content: Normal thought content present Insight: Good insight present (Psych) Course Course Course Narrative: RME: 38 yold male presents to the ED for right hip/groin/back pain radiating down leg. patient has known pmh of right hip fracture. no new trauma or leg swelling. labs, UA, CT scan ordered Medical Decision Making Medical Decision Making [facility] Narrative: Patient is a 38 year old assigned male at with a history of chronic pain presenting to the emergency department today with right pain. Patient's physical exam was unremarkable. Patient's blood work was unremarkable. Patient's urine showed no acute process. Patient's abdominal / pelvis CT showed no acute process. I explained my physical exam findings as well as all test results to the patient. I answered all questions asked by the patient. I stressed the importance of the patient taking his medication as prescribed. I stressed the importance of the patient following up with his primary care provider and his pain specialist. I stressed the importance of the patient returning to the emergency department immediately if his symptoms were to worsen or if he were to develop any dizziness, shortness of breath, difficulty breathing, chest pain, blurry vision, loss of vision, nausea, vomiting, abdominal pain, fever, chills, back pain, or any other complaints. Patient verbalized agreement and understanding with this treatment plan and discharge. Differential Diagnosis Differential Diagnoses: The differential diagnosis associated with the presentation includes hip dislocation hip fracture hip strain hip pain Admission/Observation Consideration of admission/observation: Escalation of care including admission/observation considered Patient would have been admitted to the hospital had his work up had any findings where hospital admission was appropriate and his clinical presentation warranted hospital admission. Lab Data [facility] Lab Attestation statement: I reviewed the patient's lab results. My interpretation of these results are in the MDM Rationale portion of this note. 03/18/23 14:12 03/18/23 14:12 Labs: Lab Results 03/18/23 03/18/23 Range/Units 14:12 16:11 WBC 7.7 (4.8-10.8) X10*3/uL RBC 5.79 (4.60-5.80) X10*6/uL Hgb 16.9 (14.0-18.0) g/dl Hct 48.3 (42.0-52.0) % MCV 83.4 (80.0-98.0) fL MCH 29.2 (27.0-33.0) pg MCHC 35.0 (31.0-36.0) g/dl RDW 12.8 (11.0-16.0) % Plt Count 198 (160-400) X10*3/uL MPV 9.2 L (9.4-12.4) fL Immature Gran % (Auto) 0.4 (0.0-0.4) % Neut % (Auto) 59.6 (45-73) % Lymph % (Auto) 32.3 (20-40) % [place] % (Auto) 4.3 (2-11) % Eos % (Auto) 2.9 (0-4) % Baso % (Auto) 0.5 (0-2) % Lymph # (Auto) 2.5 (1.2-4.9) X10*3/uL [place] # (Auto) 0.3 (0.1-1.2) X10*3/uL Eos # (Auto) 0.2 (0.0-0.4) X10*3/uL Baso # (Auto) 0.0 (0.0-0.2) X10*3/uL Abs Immat Gran (auto) 0.03 (0.00-0.03) X10*3/uL Absolute Neuts (auto) 4.6 (2.0-8.3) x10*3/uL Absolute Nucleated RBC 0.000 (0.0-0.012) X10*3/uL Nucleated RBC % (auto) 0.0 (0.0-0.2) /100WBC Sodium 139 (135-145) mmol/L Potassium 4.1 (3.3-5.1) mmol/L Chloride 104 (96-108) mmol/L Carbon Dioxide 25 (22-29) mmol/L Anion Gap 14 (12-20) BUN 10 (9-16) mg/dL Creatinine 1.02 (0.5-1.4) mg/dL Estim Creat Clear Calc 117.4 Estimated GFR > 60 Random Glucose 98 (60-115) mg/dL Calcium 9.3 (8.4-10.2) mg/dL Total Bilirubin 0.5 (0.0-1.0) mg/dL AST 29 (5-37) U/L ALT 42 H (0-40) U/L Alkaline Phosphatase 69 (39-117) U/L Total Protein 7.5 (6.5-8.0) g/dL Albumin 4.5 (3.5-5.0) g/dL Urine Color Yellow Urine Appearance Clear Urine pH 6.0 (5.0-9.0) Ur Specific [place] 1.020 (1.005-1.025) Urine Protein Negative (Neg-Trace) mg/dL Urine Glucose (UA) Negative (Negative) mg/dL Urine Ketones Negative (Negative) mg/dL Urine Blood Negative (Negative) Urine Nitrite Negative (Negative) Ur Leukocyte Esterase Negative (Negative) Independent Interpretation I performed an independent interpretation of an: CT Scan Interpretation: My interpretation is in agreement with the radiologist's impression of this imaging study. - EXAMINATION: CT ABDOMEN AND PELVIS WITHOUT CONTRAST CLINICAL INFORMATION: Right groin/hip pain, question fracture, appendicitis, stone COMPARISON: None available. TECHNIQUE: Multidetector volumetric imaging was performed from the superior aspect of the liver through the pubic symphysis. Sagittal and coronal reformatted images were obtained on the technologist's workstation. This CT examination was performed using dose optimization techniques as appropriate, variously including the following: *Automated exposure control *Adjustment of mA and/or kV according to patient size (this includes techniques or standardized protocols for targeted exams where dose is matched to indication/reason for exam; i.e. extremities or head) *Use of iterative reconstruction technique DLP: 855 mGy-cm FINDINGS: Evaluation of solid organs, vascular structures, and bowel wall limited in the absence of intravenous contrast. LUNG BASES: Unremarkable. LIVER AND BILIARY TREE: Mild diffuse hepatic steatosis. GALLBLADDER: Unremarkable. PANCREAS: Marked diffuse pancreatic fatty infiltration/atrophy. SPLEEN: Unremarkable. ADRENAL GLANDS: Unremarkable. KIDNEYS AND URETERS: Unremarkable. GASTROINTESTINAL TRACT: Unremarkable. Normal appendix.. VASCULAR: Circumaortic left renal vein, a normal anatomic variant. Accessory or replaced right renal artery arises from the superior mesenteric artery and accessory left hepatic artery arises from the left gastric artery, also anatomic variants. Otherwise unremarkable. LYMPH NODES: No lymphadenopathy. PERITONEUM: No ascites. BLADDER: Unremarkable. PELVIC VISCERA: Unremarkable. ABDOMINAL AND PELVIC WALL: Unremarkable. Normal appearance of the visualized right inguinal/groin soft tissues. OSSEOUS STRUCTURES: Unremarkable. CT/CT abdomen pelvis wo IV con IMPRESSION: 1. No acute abnormality in the abdomen or pelvis. Specifically, no urinary tract calculi or evidence of appendicitis. 2. Mild diffuse hepatic steatosis. Marked diffuse pancreatic fatty infiltration/atrophy. Dictated By: Delvis Romeo MD Signed By: Electronically signed by Delvis Romeo MD 03/18/23 1508 Radiology Impression Discussion of test interpretation with radiology: I have reviewed the radiologist's reading. Discharge Plan Discharge Clinical Impression: Acute hip pain Patient Disposition: Home, Self-Care Instructions: Hip Pain (ED) Additional Instructions: Follow up with your primary care provider, your pain specialist, and an orthopedic provider. Return to the emergency department immediately if your symptoms worsen or if you develop any dizziness, shortness of breath, difficulty breathing, chest pain, blurry vision, loss of vision, nausea, vomiting, abdominal pain, fever, chills, back pain, or any other complaints. Prescriptions: No Action albuterol sulfate [Ventolin HFA] 90 mcg/actuation HFA aerosol inhaler 2 puff PO QID 30 Days Qty: 18 5RF (DME) inhalational spacing device Spacer See Rx Instructions .Route Qty: 2 0RF Rx Instructions: As directed fluticasone propionate 50 mcg/actuation spray,suspension 1 spray intranasal DAILY Qty: 16 3RF naloxone [Narcan] 4 mg/actuation spray,non-aerosol 4 mg intranasal Q2M PRN (Reason: opioid overdose) Qty: 2 0RF Rx Instructions: spray 1 dose into ONE nostril; alternate nostrils w each dose until help arrives fluocinonide 0.05 % cream 1 appl topical BID PRN (Reason: rash) Qty: 60 1RF budesonide-formoterol [Symbicort] 160-4.5 mcg/actuation HFA aerosol inhaler 2 puff inhalation BID Qty: 10.2 3RF morphine 15 mg tablet 15 mg PO Q6H PRN (Reason: pain) 28 Days Qty: 112 0RF cetirizine 10 mg tablet 10 mg PO DAILY Qty: 90 1RF morphine 30 mg tablet extended release 30 mg PO Q12H 28 Days Qty: 56 0RF carisoprodol 350 mg tablet 350 mg PO QID PRN (Reason: muscle pain) 28 Days Qty: 112 0RF Rx Instructions: take 1 tablet orally four times a day as needed ipratropium-albuterol 0.5 mg-3 mg(2.5 mg base)/3 mL solution for nebulization 3 ml inhalation Q4H PRN montelukast [Singulair] 10 mg tablet 10 mg PO DAILY (DME) NEBULIZER and all related supplies See Rx Instructions .Route .MEDSUPPLY Qty: 1 0RF Rx Instructions: Use as directed Referrals: [facility] [Provider Group] (Call to establish and follow up with an orthopedic provider. ) Jairon Rodriguez MD [Primary Care Provider] - Interventions: ED Discharge Assessment Last Done: 03/18/23 17:41 Discharge Date/Time: 03/18/23 17:55 Print Language: Luxembourgish
[2023-03-18 14:15] LABS: MANUAL DIFF FLAG NO
[2023-03-18 14:16] LABS: Basophils Percent Auto 0.5 % (0-2); Eosinophils Absolute Auto 0.2 X10*3/uL (0.0-0.4); Eosinophils Percent Auto 2.9 % (0-4); Hematocrit 48.3 % (42.0-52.0); Hemoglobin 16.9 g/dl (14.0-18.0); Imm Gran Abs Auto 0.03 X10*3/uL (0.00-0.03); Imm Gran Pct Auto 0.4 % (0.0-0.4); Lymphocytes Absolute Auto 2.5 X10*3/uL (1.2-4.9); Lymphocytes Percent Auto 32.3 % (20-40); Mean Corpuscular Hemoglobin 29.2 pg (27.0-33.0); Mean Corpuscular Volume 83.4 fL (80.0-98.0); Mean Platelet Volume 9.2 fL (9.4-12.4); Monocytes Absolute Auto 0.3 X10*3/uL (0.1-1.2); Monocytes Percent Auto 4.3 % (2-11); Neutrophils Absolute Auto 4.6 x10*3/uL (2.0-8.3); Neutrophils Percent Auto 59.6 % (45-73); Platelet Count 198 X10*3/uL (160-400); Red Blood Count 5.79 X10*6/uL (4.60-5.80); Red Cell Distribution Width 12.8 % (11.0-16.0); White Blood Count 7.7 X10*3/uL (4.8-10.8)
[2023-03-18 14:29] LABS: Alanine Aminotransferase 42 U/L (0-40); Albumin Level 4.5 g/dL (3.5-5.0); Alkaline Phosphatase 69 U/L (39-117); Anion Gap 14 (12-20); Aspartate Amino Transferase 29 U/L (5-37); Bilirubin Total 0.5 mg/dL (0.0-1.0); Blood Urea Nitrogen 10 mg/dL (9-16); Calcium 9.3 mg/dL (8.4-10.2); Carbon Dioxide 25 mmol/L (22-29); Chloride 104 mmol/L (96-108); Creatinine Clr Calc Pharmacy 117.4; Estimated Glomerular Filt Rate > 60; Glucose Random 98 mg/dL (60-115); Potassium 4.1 mmol/L (3.3-5.1); Sodium 139 mmol/L (135-145); Total Protein 7.5 g/dL (6.5-8.0)
[2023-03-18 16:20] LABS: Appearance Urine Clear; Color Urine Yellow; Glucose Urine UA Negative (Negative); Leukocyte Esterase Urine Negative (Negative); Nitrite Urine Negative (Negative); Urine Blood Negative (Negative); Urine Ketones Negative (Negative); Urine Protein Negative (Neg-Trace)
== END 2023-03-18 17:55 | disposition home or self-care (01) ==
PROVIDERS: Physician Assistant; Emergency Provider Emergency Medicine; PCP Internal Medicine
DX: M25.551 Pain in right hip (principal); M79.604 Pain in right leg; R20.2 Paresthesia of skin; R10.2 Pelvic and perineal pain; Z79.899 Other long term (current) drug therapy
CPT/HCPCS: 36415; 74176; 80053; 81003; 85025; 99282; 99284

== ENCOUNTER 2023-05-20 21:55 | Emergency (ER) | payer OTHER, SELFPAY ==
--- NOTE | 2023-05-20 | ECG_ITS ---
Test Reason : SEIZURE Blood Pressure : / mmHG Vent. Rate : 090 BPM Atrial Rate : 090 BPM P-R Int : 166 ms QRS Dur : 084 ms QT Int : 368 ms P-R-T Axes : 046 032 036 degrees QTc Int : 450 ms Normal sinus rhythm Normal ECG No previous ECGs available Referred By: Generic ED Physician Electronically Signed By:BRI VAZQUEZ
--- NOTE | ~2023-05-20 | XR_ITS ---
EXAMINATION: XR HIP, LEFT CLINICAL INFORMATION: Fall. Pain. COMPARISON: None available. TECHNIQUE: Two views of the left hip. FINDINGS: No fracture. Alignment is anatomic. Hip joint space is maintained. Soft tissues are unremarkable. XR/XR hip LT w PEL1V IMPRESSION: No significant abnormality identified.
--- NOTE | ~2023-05-20 | CT_ITS ---
EXAMINATION: CT HEAD WITHOUT CONTRAST CLINICAL INFORMATION: Head injury. COMPARISON: None available. TECHNIQUE: Contiguous axial imaging was performed from the skull base to vertex without intravenous administration of contrast. This CT examination was performed using dose optimization techniques as appropriate, variously including the following: *Automated exposure control *Adjustment of mA and/or kV according to patient size (this includes techniques or standardized protocols for targeted exams where dose is matched to indication/reason for exam; i.e. extremities or head) *Use of iterative reconstruction technique DLP: 635 mGy-cm FINDINGS: The lateral, third and fourth ventricles are normally outlined. The cortical sulci and basal cisterns are normally outlined as well. There is no acute territorial defect, hemorrhage or midline shift. The extra-axial spaces are unremarkable. Calvarium: Intact. Maxillofacial sinuses and mastoids: Clear as visualized. CT/CT head/brain wo IV con IMPRESSION: No acute intracranial pathology.
[2023-05-20 22:04] VITALS: BP 107/60; BP 170/92; PULSE 121; PULSE 97; RESP 17; TEMP 36.6; O2SAT 93; O2SAT 95; BMI 40.9
[2023-05-20 22:11] LABS: Glucose, Whole Blood 100 mg/dL (60-115)
--- NOTE | 2023-05-20 22:17 | PC.NURSE ---
late entry- pt biba from [facility], a&ox4, respirations even and unlabored, per ems pt father witnessed pt have 30second to 5 minute seizure, confirmation unknown. per ems pt refused IV access and albuterol treatment. upon arrival pt calm and allowed this RN to place iv, labs obtained and sent, seizure precautions in place, pt normal sinus on tele 89-90bpm. pt reports he is unsure of what happened.
[2023-05-20 22:21] LABS: Basophils Absolute Auto 0.1 X10*3/uL (0.0-0.2); Basophils Percent Auto 0.5 % (0-2); Eosinophils Absolute Auto 0.3 X10*3/uL (0.0-0.4); Eosinophils Percent Auto 1.7 % (0-4); Hematocrit 45.3 % (42.0-52.0); Hemoglobin 16.1 g/dl (14.0-18.0); Imm Gran Abs Auto 0.14 X10*3/uL (0.00-0.03); Imm Gran Pct Auto 0.9 % (0.0-0.4); Lymphocytes Percent Auto 44.1 % (20-40); MANUAL DIFF FLAG SCAN; Mean Corpuscular HGB Conc 35.5 g/dl (31.0-36.0); Mean Corpuscular Hemoglobin 29.9 pg (27.0-33.0); Mean Corpuscular Volume 84.2 fL (80.0-98.0); Mean Platelet Volume 9.2 fL (9.4-12.4); Monocytes Absolute Auto 0.8 X10*3/uL (0.1-1.2); Monocytes Percent Auto 5.4 % (2-11); Neutrophils Percent Auto 47.4 % (45-73); Platelet Count 240 X10*3/uL (160-400); Red Blood Count 5.38 X10*6/uL (4.60-5.80); Red Cell Distribution Width 13.1 % (11.0-16.0); SCAN SMEAR FLAG 1; White Blood Count 14.9 X10*3/uL (4.8-10.8)
[2023-05-20 22:28] LABS: Lymphocytes Absolute Auto 6.6 X10*3/uL (1.2-4.9)
[2023-05-20 22:37] LABS: Alanine Aminotransferase 49 U/L (0-40); Albumin Level 4.4 g/dL (3.5-5.0); Alkaline Phosphatase 63 U/L (39-117); Anion Gap 20 (12-20); Aspartate Amino Transferase 38 U/L (5-37); Bilirubin Total 0.3 mg/dL (0.0-1.0); Blood Urea Nitrogen 14 mg/dL (9-16); Calcium 9.6 mg/dL (8.4-10.2); Carbon Dioxide 19 mmol/L (22-29); Chloride 104 mmol/L (96-108); Estimated Glomerular Filt Rate > 60; Glucose Random 94 mg/dL (60-115); Sodium 139 mmol/L (135-145); Total Protein 7.5 g/dL (6.5-8.0)
[2023-05-20 22:44] LABS: SLIDE REVIEW VERIFIED
[2023-05-21 00:29] VITALS: BP 129/67; PULSE 77; RESP 12; TEMP 36.5; O2SAT 95
--- NOTE | 2023-05-21 02:16 | ED_ITS ---
HPI - General Adult General Chief complaint: Seizure Stated complaint: POSSIBLE SEIZURE Time Seen by Provider: 05/21/23 01:59 Source: patient Mode of arrival: EMS Limitations: no limitations History of Present Illness HPI narrative: 38-year-old male with a history of asthma, depression, GERD, chronic back pain with right leg radiculopathy who presents emergency department for evaluation of witnessed seizure that occurred while he was shopping at the [employer]. The patient states he did have seizures when he was a child but they stop the age 4 and has not had any seizures since then he states that he remembers standing by his shopping cart in his eyes started to get her back and forth. He states that he then saw colors in his vision and then has no memory of what happened next. It was reported that the patient had a 5 minute tonic-clonic seizure and was postictal during transport and the patient remembers waking up on the transfer gurney. Patient states that he currently has at pounding headache and left hip pain. Patient states he takes 30 mg of morphine twice a day for his chronic pain syndrome. Related Data Home Medications ?Medication ?Instructions ?Recorded ?Confirmed ipratropium 0.5 mg-albuterol 3 mg 3 ml inhalation Q4H PRN 01/20/20 03/12/23 (2.5 mg base)/3 mL nebulization soln montelukast 10 mg tablet 10 mg PO DAILY 01/20/20 03/12/23 (Singulair) Previous Rx's ?Medication ?Instructions ?Recorded albuterol sulfate 90 mcg/actuation 2 puff PO QID 30 days #18 grams 04/07/20 aerosol inhaler (Ventolin HFA) inhalational spacing device #2 ea 04/21/21 fluticasone propionate 50 1 spray intranasal DAILY #16 mL 02/27/22 mcg/actuation nasal spray,suspension naloxone 4 mg/actuation nasal 4 mg intranasal Q2M PRN opioid 05/10/22 spray (Narcan) overdose #2 ea NEBULIZER and all related supplies #1 ea 09/08/22 fluocinonide 0.05 % topical cream 1 appl topical BID PRN rash #60 12/11/22 grams cetirizine 10 mg tablet 10 mg PO DAILY #90 tabs 03/04/23 BACK BRACE #1 ea 03/21/23 HIP IMMOBILIZER #1 ea 03/21/23 morphine 30 mg tablet,extended 30 mg PO Q12H 28 days #56 tabs 04/30/23 release Symbicort 160 mcg-4.5 2 puff inhalation BID #10.2 grams 05/15/23 mcg/actuation HFA aerosol inhaler (budesonide-formoterol) carisoprodol 350 mg tablet 350 mg PO QID PRN muscle pain 28 05/16/23 days #112 tabs morphine 15 mg immediate release 15 mg PO Q6H PRN pain 28 days #112 05/16/23 tablet tabs levetiracetam 500 mg tablet 500 mg PO Q12H #60 tabs 05/21/23 (Keppra) Allergies Allergy/AdvReac Type Severity Reaction Status Date / Time Iodinated Contrast Media Allergy Unknown breathing Verified 05/20/23 22:07 problems oxycodone [Tylox] Allergy Unknown swelling, Verified 05/20/23 22:07 rash Review of Systems 2 Review of Systems: Yes all other systems are reviewed and are negative [facility] Past Medical History [facility] Narrative: Social history: He denies tobacco, alcohol and drug use Medical History Obesity (BMI 30-39.9) Depression Epilepsy Osteoporosis GERD without esophagitis Lumbar degenerative disc disease Pure hypercholesterolemia Asthma Scalp psoriasis Exposure to STD Chronic pansinusitis Surgical History History of surgery History of sinus surgery Family History Family History Father Medical history unknown Mother Cancer Social History Social History Housing: House Alcohol intake: never Patient Tobacco Use Status: Never used Tobacco Smoked in Last 30 Days: No e-Cigarette/Vaping Use: Never Used Second Hand Smoke Exposure: Yes Use of substances other than those prescribed or required for medical reasons: No Advance Directives: No Advance Directives Information Provided: Yes service: No Current occupational status: employed Current occupation: [employer] Cognitive needs: No Hearing needs: No Vision needs: No Physical Exam ED Vital Signs: Vital Signs - 24 hr 05/20/23 22:04 05/21/23 00:29 05/21/23 02:39 Temperature 97.8 F 97.7 F 97.7 F Pulse Rate 97 77 84 Respiratory Rate 17 12 20 Blood Pressure 107/60 129/67 131/90 H Pulse Oximetry 93 95 97 Oxygen Delivery Method Room Air Room Air Room Air 05/21/23 04:42 Temperature Pulse Rate 85 Respiratory Rate 17 Blood Pressure 128/85 Pulse Oximetry 98 Oxygen Delivery Method Room Air BMI result Body Mass Index 40.9 Vital signs were Exam: General: Awake, alert in no distress Head: Normocephalic, atraumatic EENT: PERRL, Lids normal, sclera normal, conjunctiva normal, nose normal , ears normal, throat without erythema or exudates Neck: Supple, no adenopathy Lung: breath sounds symmetric, no wheezing, rales or rhonchi Chest: symmetric movement, nontender Heart: regular rate and rhythm, normal S1, S2 no murmurs or rubs Abdomen: soft, non-tender, nondistended, normal bowel sounds Back: no vertebral tenderness, no CVAT Extremities: Left hip tenderness with limited range of motion secondary to pain Neuro: Awake, alert, oriented, normal speech, cranial nerves intact, patient has difficulty moving his right leg secondary to his radiculopathy-this is chronic, patient has difficulty moving his left leg secondary to pain Psych: Pleasant, cooperative Medications Administered Discontinued Medications Generic Name Dose Route Start Last Admin Trade Name Santiq PRN Reason Stop Dose Admin Hydromorphone HCl 1 mg 05/21/23 04:22 05/21/23 04:43 Hydromorphone Hcl 1 Mg/Ml Syringe IVPUSH 05/21/23 04:23 1 mg ONCE STA Administration Protocol Levetiracetam 500 mg 05/21/23 02:14 05/21/23 02:40 Levetiracetam 500 Mg Tablet PO 05/21/23 02:15 500 mg ONCE ONE Administration Morphine Sulfate 4 mg 05/21/23 02:14 05/21/23 02:40 Morphine Sulfate 4 Mg/Ml Cartridge IVPUSH 05/21/23 02:15 4 mg ONCE ONE Administration Protocol Medical Decision Making Medical Decision Making MDM Narrative: 38-year-old male with a history of asthma, depression, GERD, chronic back pain with right leg radiculopathy who presents emergency department for evaluation of witnessed seizure that occurred while he was shopping at the [facility]. The patient states he did have seizures when he was a child but they stop the age 4. Patient may have had an aura which involved his eyes taking back and forth and then seeing colors prior to have a witnessed tonic clonic seizure. Patient was postictal and remembers waking up in the ambulance. Vital signs were normal exam is concerning chronic pain syndrome with difficulty moving his right leg and tenderness palpation over his left hip. His neurologic exam was otherwise unremarkable. Obvious signs of head trauma Differential diagnosis: ?Includes but is not limited to seizure, electrolyte abnormalities, anemia, skull fracture, intracranial bleed, left hip contusion, with hip fracture, electrolyte abnormalities, anemia Following evaluation was ordered: CBC, CMP, CT scan of the brain without IV contrast, x-ray of the left hip and pelvis, 12 EKG Patient was initially treated with the following: Morphine 4 mg IV, Keppra 500 mg orally Course: 02:29 My independent interpretation of the patient's laboratory evaluation as follows: Elevated WBC 43655.. Elevated AST and ALT 38 and 49[address] The patient's CT scan of the head revealed no acute findings. Left hip x-ray also revealed no acute findings. Patient had a witnessed tonic clonic seizure with a postictal. Having another seizure after first-time seizure and after this discussion the patient states that he would like to be started on antiepileptic medications. Patient was given Keppra 500 mg orally and was given a prescription for Keppra 500 mg q.12 hours The patient was given printed and verbal instructions on new onset seizure and was discharged home Admission/Observation Consideration of admission/observation: Escalation of care including admission/observation considered Lab Data MDM Lab Attestation statement: I reviewed the patient's lab results. 05/20/23 22:17 05/20/23 22:17 Labs: Lab Results 05/20/23 05/20/23 Range/Units 22:08 22:17 WBC 14.9 H (4.8-10.8) X10*3/uL RBC 5.38 (4.60-5.80) X10*6/uL Hgb 16.1 (14.0-18.0) g/dl Hct 45.3 (42.0-52.0) % MCV 84.2 (80.0-98.0) fL MCH 29.9 (27.0-33.0) pg MCHC 35.5 (31.0-36.0) g/dl RDW 13.1 (11.0-16.0) % Plt Count 240 (160-400) X10*3/uL MPV 9.2 L (9.4-12.4) fL Immature Gran % (Auto) 0.9 H (0.0-0.4) % Neut % (Auto) 47.4 (45-73) % Lymph % (Auto) 44.1 H (20-40) % Gaston % (Auto) 5.4 (2-11) % Eos % (Auto) 1.7 (0-4) % Baso % (Auto) 0.5 (0-2) % Lymph # (Auto) 6.6 H (1.2-4.9) X10*3/uL Gaston # (Auto) 0.8 (0.1-1.2) X10*3/uL Eos # (Auto) 0.3 (0.0-0.4) X10*3/uL Baso # (Auto) 0.1 (0.0-0.2) X10*3/uL Abs Immat Gran (auto) 0.14 H (0.00-0.03) X10*3/uL Absolute Neuts (auto) 7.0 (2.0-8.3) x10*3/uL Absolute Nucleated RBC 0.000 (0.0-0.012) X10*3/uL Nucleated RBC % (auto) 0.0 (0.0-0.2) /100WBC Smear Tech's Comments VERIFIED Sodium 139 (135-145) mmol/L Potassium 4.0 (3.3-5.1) mmol/L Chloride 104 (96-108) mmol/L Carbon Dioxide 19 L (22-29) mmol/L Anion Gap 20 (12-20) BUN 14 (9-16) mg/dL Creatinine 1.08 (0.5-1.4) mg/dL Estim Creat Clear Calc 113.0 Estimated GFR > 60 POC Glucose 100 (60-115) mg/dL Random Glucose 94 (60-115) mg/dL Calcium 9.6 (8.4-10.2) mg/dL Total Bilirubin 0.3 (0.0-1.0) mg/dL AST 38 H (5-37) U/L ALT 49 H (0-40) U/L Alkaline Phosphatase 63 (39-117) U/L Total Protein 7.5 (6.5-8.0) g/dL Albumin 4.4 (3.5-5.0) g/dL Independent Interpretation I performed an independent interpretation of an: EKG Interpretation: My independent interpretation patient's 12 EKG done at 22:07 hours is as follows: Normal sinus rhythm with a rate of 90, normal WI interval, QRS duration QTC interval, no ST segment elevation, no ST segment depression, no PACs, no PVCs, no T-wave abnormalities -this is a normal EKG Radiology Impression Discussion of test interpretation with radiology: I have reviewed the radiologist's reading. Radiologist Impression: CT head/brain wo IV con IMPRESSION: No acute intracranial pathology. Dictated By: Wily Farooq XR hip LT w [id number] IMPRESSION: No significant abnormality identified. Dictated By: Wily Farooq Prescription Management I considered prescription management with: Other (Antiepileptic) Discharge Plan Discharge Clinical Impression: New onset seizure, Contusion of hip, left, Chronic pain Patient Disposition: Home, Self-Care Instructions: New-Onset Seizure in Adults (ED) Additional Instructions: Your blood work was unremarkable pain The CT scan of your brain revealed no skull fracture, bleeding or large tumor of the brain. The x-ray of your left hip revealed no broken bones/fractures Your symptoms today are consistent with a epileptic seizure Starting you on anti seizure medicine called Keppra. You received Keppra 500 mg orally in the emergency depart and I am starting you on Keppra 500 mg every 12 hours Your primary care doctor will need to be prescribed this medication. You will need to follow-up with a neurologist for further evaluation of possible seizures. You can not drive until you are medically cleared by the neurologist. If you drive you could have a seizure and kill yourself or kill other people. Follow-up with your doctor in 2 days. Please return to the emergency department if your symptoms get worse or if you develop any symptoms that are concerning to you. Prescriptions: New levetiracetam [Keppra] 500 mg tablet 500 mg PO Q12H Qty: 60 0RF No Action albuterol sulfate [Ventolin HFA] 90 mcg/actuation HFA aerosol inhaler 2 puff PO QID 30 Days Qty: 18 5RF (DME) inhalational spacing device Spacer See Rx Instructions .Route Qty: 2 0RF Rx Instructions: As directed fluticasone propionate 50 mcg/actuation spray,suspension 1 spray intranasal DAILY Qty: 16 3RF naloxone [Narcan] 4 mg/actuation spray,non-aerosol 4 mg intranasal Q2M PRN (Reason: opioid overdose) Qty: 2 0RF Rx Instructions: spray 1 dose into ONE nostril; alternate nostrils w each dose until help arrives fluocinonide 0.05 % cream 1 appl topical BID PRN (Reason: rash) Qty: 60 1RF cetirizine 10 mg tablet 10 mg PO DAILY Qty: 90 1RF (DME) HIP IMMOBILIZER See Rx Instructions .Route .MEDSUPPLY Qty: 1 0RF Rx Instructions: As directed (DME) BACK BRACE See Rx Instructions .Route .MEDSUPPLY Qty: 1 0RF Rx Instructions: As directed morphine 30 mg tablet extended release 30 mg PO Q12H 28 Days Qty: 56 0RF budesonide-formoterol [Symbicort] 160-4.5 mcg/actuation HFA aerosol inhaler 2 puff inhalation BID Qty: 10.2 3RF morphine 15 mg tablet 15 mg PO Q6H PRN (Reason: pain) 28 Days Qty: 112 0RF carisoprodol 350 mg tablet 350 mg PO QID PRN (Reason: muscle pain) 28 Days Qty: 112 0RF Rx Instructions: take 1 tablet orally four times a day as needed ipratropium-albuterol 0.5 mg-3 mg(2.5 mg base)/3 mL solution for nebulization 3 ml inhalation Q4H PRN montelukast [Singulair] 10 mg tablet 10 mg PO DAILY (DME) NEBULIZER and all related supplies See Rx Instructions .Route .MEDSUPPLY Qty: 1 0RF Rx Instructions: Use as directed Print Language: Slovak
[2023-05-21 02:39] VITALS: BP 131/90; PULSE 84; RESP 20; TEMP 36.5; O2SAT 97
[2023-05-21] MEDS: Morphine Sulfate 4 MG/ML CARTRIDGE IVPUSH (02:40)
[2023-05-21] MEDS: levETIRAcetam 500 MG TABLET PO (02:40)
--- NOTE | 2023-05-21 02:43 | PC.NURSE ---
pt medicated per mar for 10/10 bilateral hip pain, vss.
[2023-05-21 04:42] VITALS: BP 128/85; PULSE 85; RESP 17; O2SAT 98
[2023-05-21] MEDS: HYDROmorphone HCl 1 MG/ML SYRINGE IVPUSH (04:43)
[2023-05-21 05:16] VITALS: BP 132/79; PULSE 80; RESP 20; TEMP 36.9; O2SAT 96
== END 2023-05-21 05:31 | disposition home or self-care (01) ==
PROVIDERS: Emergency Provider Emergency Medicine Emergency Medical Services
DX: R56.9 Unspecified convulsions (principal); S70.02XA Contusion of left hip, initial encounter; G89.4 Chronic pain syndrome; Z79.891 Long term (current) use of opiate analgesic; W19.XXXA Unspecified fall, initial encounter; Y93.9 Activity, unspecified; Y92.512 Supermarket, store or market as the place of occurrence of the external cause; Y99.9 Unspecified external cause status
CPT/HCPCS: 36415; 70450; 73502; 80053; 82947; 85025; 93005; 96374; 96375; 99284; J1170; J2270

== ENCOUNTER → 2023-05-20 22:07 | Outpatient (BNV) | payer OTHER, SELFPAY | PROVIDERS: Emergency Provider Emergency Medicine Emergency Medical Services; Visit Provider Internal Medicine | DX: R56.9 Unspecified convulsions (principal) | CPT/HCPCS: 93010 ==

== ENCOUNTER 2023-06-27 15:16 | Outpatient (AMB) | payer OTHER, SELFPAY ==
[2023-06-27 15:56] VITALS: BP 124/86; PULSE 94; O2SAT 95; BMI 40.4
--- NOTE | 2023-06-27 15:56 | A.OFFPC_ITS ---
Vital Signs 06/27/23 15:56 Height 5 ft 7 in Weight 258 lb 0.4 oz BMI 40.4 BP 124/86 Blood Pressure Location Lt brachial Position Sitting Pulse 94 Pulse Source Pulse Oximeter Pulse Oximetry (%) 95 Oxygen Delivery Method Room Air Intake Visit Reasons: 3 month f/u Charter Representative Required: No Allergies Iodinated Contrast Media Allergy (Unknown, Verified 06/27/23 16:48) breathing problems oxycodone [Tylox] Allergy (Unknown, Verified 06/27/23 16:48) swelling, rash Medication List - Last Reconciled 06/27/23 by Jairon Rodriguez MD albuterol sulfate 90 mcg/actuation (Ventolin HFA) 2 puffs PO QID 30 days [BACK BRACE As directed] carisoprodol 350 mg PO QID PRN 28 days NS cetirizine 10 mg PO DAILY fluocinonide 0.05% 1 appl topical BID PRN fluticasone propionate 50 mcg/actuation 1 spray intranasal DAILY [HIP IMMOBILIZER As directed] inhalational spacing device As directed ipratropium-albuterol 0.5 mg-3 mg(2.5 mg base)/3 mL 3 mL inhalation Q4H PRN levetiracetam (Keppra) 500 mg PO Q12H montelukast (Singulair) 10 mg PO DAILY morphine 15 mg PO Q6H PRN 28 days morphine ER 30 mg PO Q12H 28 days naloxone 4 mg/actuation (Narcan) 4 mg intranasal Q2M PRN [NEBULIZER and all related supplies Use as directed] Symbicort 160-4.5 mcg/actuation (budesonide-formoterol) 2 puffs inhalation BID NS Tobacco use date assessed: 06/27/23 Dental Screening Dental Screen Date: 03/12/23 HPI 3 month f/u HPI Details Patient comes in today for his follow up visit He apparently suffered a witnessed seizure episode last month on 05/21/2023 while he was shopping at his local [employer] in [place] (+) Hx of seizures but states that he has not had them since he was 4 yrs old States that the last thing he recalls was standing by his shopping cart and starting seeing colors in his field of vision and the next thing he remembers was coming to in the emergency room He recalls experiencing increased headaches and pain over his left hip X-rays of the hip done came out negative States that he has not had any recurrence of seizures since He tried to get in to see his neurologist in [place] but could not get an appointment until August or September (2023) - he is scheduled to be seen and will try to see if he can get on a cancellation list States that he currently still has increased nasal/sinus congestion and discomfort States that ENT at [facility] in [place] was recommending surgery for him but he has not yet been able to schedule this as a lot of things happened at home over the past year He denies any fever or chills; still has on and off headaches that he thinks are mostly related to his chronic sinus issues He denies any sore throat He denies any chest pains, no increased SOB No nausea/vomiting, no abdominal pain No change in bowel habits noted States that his chronic low back pain and joint pains remain adequately controlled on his current Rx Needs his Fluocinonide cream Rx refilled Would also like to know how he did on his labs done back in March 2023 [facility] Medical History (Updated 06/27/23 @ 18:58 by Jairon Rodriguez MD) Vitamin D deficiency Obesity (BMI 30-39.9) Depression Epilepsy Osteoporosis GERD without esophagitis Lumbar degenerative disc disease Pure hypercholesterolemia Asthma Scalp psoriasis Exposure to STD Chronic pansinusitis Surgical History History of surgery History of sinus surgery Family History Father Medical history unknown Mother Cancer Social History Housing: House Alcohol intake: never Patient Tobacco Use Status: Never used Tobacco e-Cigarette/Vaping Use: Never Used Second Hand Smoke Exposure: Yes service: No Current occupational status: employed 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 [employer] Cognitive needs: No Hearing needs: No Vision needs: No Questionnaire Thrive Questionnaire Date Thrive assessed: 03/12/23 I am a: Patient What is your living situation today?: I have a steady place to live Within the past 12 months, did the food you bought not last and you didn't have the money to get more?: Never true Within the past 12 months, did you worry whether your food would run out before you got money to buy more?: Never true Do you have trouble paying for medicines?: No Do you have trouble getting transportation to medical appointments?: No Do you have trouble paying your heating and electricity bill?: No Do you have trouble taking care of your child, family member or friend?: No Do you have trouble with day-to-day activities such as bathing, preparing meals, shopping, managing finances, etc.?: No Are you currently unemployed and looking for a job?: No Are you interested in more education?: No Please select the resources that you would like help with: None Currently or been in a relationship where the following occur: no concerns r eported THRIVE Score: 0 AUDIT C Alcohol Use Questionnaire (AUDIT-C) 1. How often do you have a drink containing alcohol?: Never 3. How often do you have six or more drinks on one occasion?: Never Total Score: 0 Score Reviewed/Action Taken: Yes DIMITRY-7 AMB Questionnaire DIMITRY-7 Date DIMITRY - 7 assessed: 03/12/23 Source: Developed by Drs. Wily Narayanan, Emily Reynaga, Damian Kan and colleagues, with an educational chi from [employer]. Review of Systems Const Denies chills, Reports fatigue, Denies fever(s) and Reports headache(s) (on and off) ENT Denies dysphagia, Denies dizziness, Reports headache(s) (on and off), Reports nasal congestion (on and off), Denies nasal discharge, Reports neck pain, Denies odynophagia, Reports sinus pressure and Denies sore throat Card Denies chest pain, Denies palpitations and Reports dyspnea on exertion (occasionally, mostly when his asthma flares up) Resp Denies chest congestion, Denies cough, Denies pain on inspiration, Reports dyspnea on exertion (occasionally, mostly when his asthma flares up) and Denies wheezing GI Denies abdominal pain, Denies constipation, Denies dysphagia, Denies heartburn, Denies diarrhea, Denies nausea, Denies odynophagia and Denies vomiting Denies dysuria, Denies nocturia and Denies urinary frequency Musc Reports back pain (chronic - increasing) and Reports neck pain Skin/Breast Denies rash Neuro Denies dizziness, Reports headache(s) (on and off) and Reports convulsions (one episode last month (see HPI); no recurrence since) Endo Reports fatigue and Denies palpitations Alexei/Lymph Details: (+) on and off swelling of the left leg and left foot Aller/Immun Denies wheezing Physical exam (Primary Care) Vital Signs: Last Vital Signs Pulse 94 06/27/23 15:56 BP 124/86 06/27/23 15:56 Pulse Ox 95 06/27/23 15:56 Oxygen Delivery Method Room Air 06/27/23 15:56 BMI result Body Mass Index 40.4 Tobacco/Smoking Status: Tobacco use Status Tobacco use date assessed 06/27/23 06/27/23 15:57 Patient Tobacco Use Status Never used Tobacco 06/27/23 15:57 e-Cigarette/Vaping Use Never Used 06/27/23 15:57 Thrive Assessment: Date of Thrive Assessment Date Thrive assessed 03/12/23 06/27/23 15:57 Currently or been in a relationship where the following occur: no concerns r eported Const General: no acute distress and alert HENMT Ears: TM's normal bilaterally and EAC's normal Face and sinus: No sinus tenderness (but (+) pressure, especially on the left side) Throat: Yes posterior oropharynx normal and Yes tonsils normal (no TP congestion noted) Neck Neck: Yes no lymphadenopathy and Yes supple Thyroid: Thyroid normal Resp Auscultation: clear to auscultation bilaterally, no crackles, no rales and no wheezes Cardio Rate: regular rate Rhythm: regular rhythm Heart sounds: no murmurs GI Palpation (GI): Soft to palpation and nontender Auscultation: normal bowel sounds General: Yes no CVA tenderness Back/Spine/Pelvis Back: no CVA tenderness Thoracic/Lumbar Spine: lumbar spinal tenderness Sacrum: no ecchymosis Skin Rashes: no rashes Extrem General: Yes no clubbing, cyanosis or edema Right lower extremity: hip/thigh Details: tenderness Location: of the hip Results Reviewed Results Reviewed: Laboratory Tests 03/13/23 03/18/23 05/20/23 15:43 14:12 22:17 WBC 7.7 14.9 H Hgb 16.9 16.1 Hct 48.3 45.3 Plt Count 198 240 Sodium 139 Potassium 4.1 Creatinine 1.02 Estimated GFR > 60 Random Glucose 98 Calcium 9.3 AST 29 ALT 42 H Triglycerides 111 Cholesterol 218 H LDL Cholesterol, Calc 156 H HDL Cholesterol 40 L 25-OH Vitamin D Total 7.4 L TSH 0.83 Assessment and Plan Assessment & Plan (1) Epilepsy: Code(s): G40.909 - Epilepsy, unspecified, not intractable, without status epilepticus Qualifiers: Epilepsy type: unspecified Intractability: not intractable Status epilepticus: without status epilepticus Qualified Code(s): G40.909 - Epilepsy, unspecified, not intractable, without status epilepticus Plan: Patient states that he has not had any seizures since he was 4 y/o until his isolated episode last month on 05/21/2023 He has not had any recurrence since so unclear at this time what triggered his recent episode Head CT done at the ER last month showed no acute intracranial pathology He is scheduled to see his neurologist in [place] in August or September 2023 for follow up - states that he tried to get in earlier but was advised that this is the earliest they can get him but he is planning to call them back and get on a cancellation list He is advised to see neurology as scheduled for follow up and further evaluation of his recent seizure (2) Asthma: Code(s): J45.909 - Unspecified asthma, uncomplicated Qualifiers: Asthma complication type: uncomplicated Asthma persistence: persistent Asthma severity: moderate Qualified Code(s): J45.40 - Moderate persistent asthma, uncomplicated Plan: Patient's asthma appears to be controlled lately Continue Symbicort 160-4.5 mcg 2 inhalations BID and Albuterol Sulfate HFA Aerosol Solution, 108 (90 Base) MCG/ACT, 2 inhalations Q 6 hours PRN (3) Pure hypercholesterolemia: Code(s): E78.00 - Pure hypercholesterolemia, unspecified Plan: Reinforced low cholesterol diet He is advised that his cholesterol levels were elevated and higher than previous on his labs done back in March 2023 Will recheck his labs and fasting lipids in 3 months for follow-up (4) Lumbar degenerative disc disease: Code(s): M51.36 - Other intervertebral disc degeneration, lumbar region Plan: Reinforced activity and weight lifting restrictions Patient had MRI of the brain done a couple of years ago as neurology wanted to be certain that his right leg (radicular) symptoms are not due to MS - MRI reportedly came back normal Continue MS Contin ER 30 MG Q 12 hours, Morphine Sulfate 15 MG 3 to 4 times a day as needed for increased pain and Soma 350 MG four times a day as needed (5) Vitamin D deficiency: Code(s): E55.9 - Vitamin D deficiency, unspecified Plan: He is advised that his Vitamin D was very low (<7) on his labs done back in March 2023 Will start him on Vitamin D3 2000 units QD (6) GERD without esophagitis: Code(s): K21.9 - Gastro-esophageal reflux disease without esophagitis Plan: Dietary restrictions reinforced (7) Psoriasis: Code(s): L40.9 - Psoriasis, unspecified Plan: Continue Fluocinonide 0.05% cream apply BID PRN - Rx refilled (8) Chronic pansinusitis: Comment: S/P maxillary antrostomy and total ethmoidectomy back in September 2018, with significant improvement of his chronic symptoms initially - symptoms have been recurring frequently since Code(s): J32.4 - Chronic pansinusitis Plan: Patient continues to experience frequent/recurrent sinus congestion and pain despite past surgical intervention He was seen and evaluated by ENT at [facility] in [place] for his chronic sinus congestion and was scheduled for corrective surgery there last year but patient canceled his surgery due to housing issues with his family States that he will call them to reschedule his surgery once everything has settled down and he feels ready to get the surgery done (9) Osteoporosis: Code(s): M81.0 - Age-related osteoporosis without current pathological fracture Qualifiers: Osteoporosis type: unspecified Presence of current pathological fracture: without current pathological fracture Qualified Code(s): M81.0 - Age- related osteoporosis without current pathological fracture Plan: BMD done back in 2015 showed significantly low BMD for his age Patient has not been taking his Actonel for a while now as he was unable to tolerate it Follow up with endocrinology as scheduled for management of his osteoporosis (10) Depression: Code(s): F32.9 - Major depressive disorder, single episode, unspecified Qualifiers: Active/Remission status: currently active Depression Type: major depressive disorder Major depression episode severity: unspecified Major depression recurrence: recurrent Qualified Code(s): F33.9 - Major depressive disorder, recurrent, unspecified Plan: He was on Sertraline HCl Tablet, 50 MG QD in the past but patient apparently stopped taking it at some point although he is not sure exactly when States that he currently feels okay without any Rx for his mood Follow-up with Psychiatry as scheduled. (11) Obesity (BMI 30-39.9): Code(s): E66.9 - Obesity, unspecified Plan: Reinforced diet; exercise and weight loss are not realistic expectations at this time due to his physical issues and multiple comorbidities Plan Follow up in 3 months Orders: Orders Comprehensive [place]. Panel Fast 3 Months E78.00 - Pure hypercholesterolemia, unspecified Lipid Panel 3 Months E78.00 - Pure hypercholesterolemia, unspecified Complete Blood Count Auto Diff 3 Months D64.9 - Anemia, unspecified TSH reflex Free T4 3 Months E78.00 - Pure hypercholesterolemia, unspecified UA CC w/rflx Micro + Cult 3 Months R30.0 - Dysuria Vitamin D 25-OH Total 3 Months E55.9 - Vitamin D deficiency, unspecified Medications: New 2 cholecalciferol (vitamin D3) 50 mcg PO DAILY 90 days 90 caps 3RF E55.9 - Vitamin D deficiency, unspecified Refilled fluocinonide 0.05% 1 appl topical BID PRN 60 grams 1RF rash Coding Level of Care Code Est Pt Level 4 (16155) Diagnoses Nonintractable epilepsy without status epilepticus, unspecified epilepsy type G40.909 Epilepsy type: unspecified Intractability: not intractable Status epilepticus: without status epilepticus Moderate persistent asthma without complication J45.40 Asthma complication type: uncomplicated Asthma persistence: persistent Asthma severity: moderate Pure hypercholesterolemia E78.00 Lumbar degenerative disc disease M51.36 Vitamin D deficiency E55.9 GERD without esophagitis K21.9 Psoriasis L40.9 Chronic pansinusitis J32.4 Osteoporosis without current pathological fracture, unspecified osteoporosis type M81.0 Osteoporosis type: unspecified Presence of current pathological fracture: without current pathological fracture Episode of recurrent major depressive disorder, unspecified depression episode severity F33.9 Active/Remission status: currently active Depression Type: major depressive disorder Major depression episode severity: unspecified Major depression recurrence: recurrent Obesity (BMI 30-39.9) E66.9
== END 2023-06-27 16:54 | disposition home or self-care (01) ==
LOC: HO.HMGH 15:18
PROVIDERS: PCP Internal Medicine; Visit Provider Internal Medicine
DX: G40.909 Epilepsy, unspecified, not intractable, without status epilepticus (principal); F33.9 Major depressive disorder, recurrent, unspecified; J45.40 Moderate persistent asthma, uncomplicated; E78.00 Pure hypercholesterolemia, unspecified; M51.36 Other intervertebral disc degeneration, lumbar region; E55.9 Vitamin D deficiency, unspecified; K21.9 Gastro-esophageal reflux disease without esophagitis; L40.9 Psoriasis, unspecified; J32.4 Chronic pansinusitis; M81.0 Age-related osteoporosis without current pathological fracture; E66.9 Obesity, unspecified
CPT/HCPCS: 99214

== ENCOUNTER 2023-10-16 16:57 | Outpatient (AMB) | payer OTHER, SELFPAY ==
--- NOTE | 2023-10-16 16:58 | A.OFFPC_ITS ---
Vital Signs 10/16/23 16:59 Height 5 ft 7 in Weight 260 lb BMI 40.7 BP 120/86 Blood Pressure Location Lt brachial Position Sitting Pulse 80 Pulse Source Pulse Oximeter Pulse Oximetry (%) 96 Oxygen Delivery Method Room Air Intake Visit Reasons: 3 month f/u Clinical Services Professional Required: No Accompanied by: Self / Same As Patient Allergies Iodinated Contrast Media Allergy (Unknown, Verified 10/16/23 17:47) breathing problems oxycodone [Tylox] Allergy (Unknown, Verified 10/16/23 17:47) swelling, rash Medication List - Last Reconciled 10/16/23 by Jairon Rodriguez MD albuterol sulfate 90 mcg/actuation (Ventolin HFA) 2 puffs PO QID 30 days [BACK BRACE As directed] carisoprodol 350 mg PO QID PRN 28 days NS cetirizine 10 mg PO DAILY cholecalciferol (vitamin D3) 50 mcg PO DAILY 90 days fluocinonide 0.05% 1 appl topical BID PRN fluticasone propionate 50 mcg/actuation 1 spray intranasal DAILY [HIP IMMOBILIZER As directed] inhalational spacing device As directed ipratropium-albuterol 0.5 mg-3 mg(2.5 mg base)/3 mL 3 mL inhalation Q4H PRN levetiracetam (Keppra) 500 mg PO Q12H montelukast (Singulair) 10 mg PO DAILY morphine 15 mg PO Q6H PRN 28 days morphine ER 30 mg PO Q12H 28 days naloxone 4 mg/actuation (Narcan) 4 mg intranasal Q2M PRN [NEBULIZER and all related supplies Use as directed] Symbicort 160-4.5 mcg/actuation (budesonide-formoterol) 2 puffs inhalation BID NS Tobacco use date assessed: 10/16/23 Dental Screening Dental Screen Date: 10/16/23 Did you have a dental visit in the last 12 months?: No Did you have a dental problem in the last 6 months where you did not have access to dental care?: No Was dental information given to patient?: No HPI 3 month f/u HPI Details Patient comes in today for his follow up visit States that he has been experiencing increased right knee pain for the past couple of weeks now; has also noticed some on and off swelling of his right knee and adjacent areas of his right lower leg recently Recalls that he was doing well when he suddenly felt a loud pop in his right knee about 2 weeks ago He initially though nothing of it until his knee started hurting a couple of days later and it has been bothering him since He denies any recent injury or trauma to his knee He still has on and off headaches but he thinks that these are mostly related to his chronic sinus issues/congestion He denies any fever or sore throat He denies any chest pains, no increased SOB No nausea/vomiting, no abdominal pain No change in bowel habits noted States that his chronic low back pain and joint pains remain adequately controll ed on his current Rx He was not able to get his follow up labs done prior to his visit today [facility] Medical History Vitamin D deficiency Obesity (BMI 30-39.9) Depression Epilepsy Osteoporosis GERD without esophagitis Lumbar degenerative disc disease Pure hypercholesterolemia Asthma Scalp psoriasis Exposure to STD Chronic pansinusitis Surgical History History of surgery History of sinus surgery Family History Father Medical history unknown Mother Cancer Social History Housing: House Alcohol intake: never Patient Tobacco Use Status: Never used Tobacco e-Cigarette/Vaping Use: Never Used Second Hand Smoke Exposure: Yes service: No Current occupational status: employed 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 1. Little interest or pleasure in doing things: several days 2. Feeling down, depressed, or hopeless: several days 3. Trouble falling or staying asleep, or sleeping too much: several days 4. Feeling tired or having little energy: several days 5. Poor appetite or overeating: not at all 6. Feeling bad about yourself - or that you are a failure or have let yourself or your family down: not at all 7. Trouble concentrating on things, such as reading the newspaper or watching television: not at all 8. Moving or speaking so slowly that other people could have noticed. Or the opposite - being so fidgety or restless that you have been moving around a lot more than usual: not at all 9. Thoughts that you would be better off or of hurting yourself in some way: not at all Total score: 4 Depression Screening Interpretation: Positive Depression Screening Follow-up: Existing condition and Declines treatment Depression Screening Done: Yes 89623 - PHQ-9 Billing: Yes Source: Developed by Drs. Wily Narayanan, Emily Reynaga, Damian Kan and colleagues, with an educational chi from [employer]. Thrive Questionnaire Date Thrive assessed: 10/16/23 I am a: Patient What is your living situation today?: I have a steady place to live Within the past 12 months, did the food you bought not last and you didn't have the money to get more?: Never true Within the past 12 months, did you worry whether your food would run out before you got money to buy more?: Never true Do you have trouble paying for medicines?: No Do you have trouble getting transportation to medical appointments?: No Do you have trouble paying your heating and electricity bill?: No Do you have trouble taking care of your child, family member or friend?: No Do you have trouble with day-to-day activities such as bathing, preparing meals, shopping, managing finances, etc.?: No Are you currently unemployed and looking for a job?: No Are you interested in more education?: No Please select the resources that you would like help with: None Currently or been in a relationship where the following occur: No concerns rep orted THRIVE Score: 0 AUDIT C Alcohol Use Questionnaire (AUDIT-C) 1. How often do you have a drink containing alcohol?: Never 3. How often do you have six or more drinks on one occasion?: Never Total Score: 0 Score Reviewed/Action Taken: Yes DIMITRY-7 AMB Questionnaire DIMITRY-7 Date DIMITRY - 7 assessed: 10/16/23 Feeling nervous, anxious, or on edge: 0 = Not at all Not being able to stop or control worryin = Not at all Worrying too much about different things: 0 = Not at all Trouble relaxin = Not at all Being so restless that it is hard to sit still: 0 = Not at all Becoming easily annoyed or irritable: 0 = Not at all Feeling afraid as if something awful might happen: 0 = Not at all Total DIMITRY-7 score (0-4 normal; 5-9 mild; 10-14 moderate; 15-21 severe): 0 Source: Developed by Drs. Wily Narayanan, Emily Reynaga, Damian Kan and colleagues, with an educational chi from [employer]. Review of Systems Const Denies chills, Reports fatigue, Denies fever(s) and Reports headache(s) (on and off) ENT Denies dysphagia, Denies dizziness, Reports headache(s) (on and off), Reports nasal congestion (chronic), Reports neck pain, Denies odynophagia and Denies sore throat Card Denies chest pain, Denies palpitations and Reports dyspnea on exertion (occasionally, mostly when his asthma flares up) Resp Denies chest congestion, Denies cough, Denies pain on inspiration, Reports dyspnea on exertion (occasionally, mostly when his asthma flares up) and Denies wheezing GI Denies abdominal pain, Denies constipation, Denies dysphagia, Denies heartburn, Denies diarrhea, Denies nausea, Denies odynophagia and Denies vomiting Denies dysuria, Denies nocturia and Denies urinary frequency Musc Reports back pain (chronic - increasing), Reports arthralgias (right knee - see HPI), Reports joint swelling (on and off in the right knee) and Reports neck pain Skin/Breast Denies rash Neuro Denies dizziness and Reports headache(s) (on and off) Endo Reports fatigue and Denies palpitations Alexei/Lymph Details: (+) on and off swelling of the left leg and left foot Aller/Immun Denies wheezing Physical exam (Primary Care) Vital Signs: Last Vital Signs Pulse 80 10/16/23 16:59 BP 120/86 10/16/23 16:59 Pulse Ox 96 10/16/23 16:59 Oxygen Delivery Method Room Air 10/16/23 16:59 BMI result Body Mass Index 40.7 Tobacco/Smoking Status: Tobacco use Status Tobacco use date assessed 10/16/23 10/16/23 17:01 Patient Tobacco Use Status Never used Tobacco 10/16/23 17:01 e-Cigarette/Vaping Use Never Used 10/16/23 17:01 PHQ-9: PHQ-9 Score PHQ-9: Total score 4 10/16/23 17:48 Depression Screening Interpretation: Positive Depression Screening Follow-up: Existing condition and Declines treatment Thrive Assessment: Date of Thrive Assessment Date Thrive assessed 10/16/23 10/16/23 17:01 Currently or been in a relationship where the following occur: No concerns reported Const General: no acute distress and alert HENMT Ears: TM's normal bilaterally and EAC's normal Face and sinus: No sinus tenderness (but (+) pressure, especially on the left side) Throat: Yes posterior oropharynx normal and Yes tonsils normal (no TP congestion noted) Neck Neck: Yes no lymphadenopathy and Yes supple Thyroid: Thyroid normal Resp Auscultation: clear to auscultation bilaterally, no crackles, no rales and no wheezes Cardio Rate: regular rate Rhythm: regular rhythm Heart sounds: no murmurs GI Palpation (GI): Soft to palpation and nontender Auscultation: normal bowel sounds General: Yes no CVA tenderness Back/Spine/Pelvis Back: no CVA tenderness Thoracic/Lumbar Spine: lumbar spinal tenderness Sacrum: no ecchymosis Skin Rashes: no rashes Extrem General: Yes no clubbing, cyanosis or edema Right lower extremity: hip/thigh Details: tenderness Location: of the hip and knee Details: tenderness and swelling Assessment and Plan Assessment & Plan (1) Epilepsy: Code(s): G40.909 - Epilepsy, unspecified, not intractable, without status epilepticus Qualifiers: Epilepsy type: unspecified Intractability: not intractable Status epilepticus: without status epilepticus Qualified Code(s): G40.909 - Epilepsy, unspecified, not intractable, without status epilepticus Plan: Patient states that he has not had any seizures since he was 4 y/o until his isolated episode a few months ago on 05/21/2023 He has not had any recurrence since so unclear at this time what triggered his recent episode Head CT done at the ER a few months ago showed no acute intracranial pathology He was supposed to see his neurologist in [place] for follow up a few weeks ago - we will try to obtain a copy of his OV notes for review (2) Asthma: Code(s): J45.909 - Unspecified asthma, uncomplicated Qualifiers: Asthma complication type: uncomplicated Asthma persistence: persistent Asthma severity: moderate Qualified Code(s): J45.40 - Moderate persistent asthma, uncomplicated Plan: Patient's asthma appears to be controlled lately Continue Symbicort 160-4.5 mcg 2 inhalations BID and Albuterol Sulfate HFA Aerosol Solution, 108 (90 Base) MCG/ACT, 2 inhalations Q 6 hours PRN (3) Pure hypercholesterolemia: Code(s): E78.00 - Pure hypercholesterolemia, unspecified Plan: He was not able to get his previously ordered follow up labs done prior to his visit today Reinforced low cholesterol diet He is advised that his cholesterol levels were elevated and higher than previous on his labs done back in March 2023 so he should try to get his follow up labs done ALVARADO (4) Lumbar degenerative disc disease: Code(s): M51.36 - Other intervertebral disc degeneration, lumbar region Plan: Reinforced activity and weight lifting restrictions Patient had MRI of the brain done a couple of years ago as neurology wanted to be certain that his right leg (radicular) symptoms are not due to MS - MRI reportedly came back normal Continue MS Contin ER 30 MG Q 12 hours, Morphine Sulfate 15 MG 3 to 4 times a day as needed for increased pain and Soma 350 MG four times a day as needed (5) Vitamin D deficiency: Code(s): E55.9 - Vitamin D deficiency, unspecified Plan: Continue Vitamin D3 2000 units QD (6) GERD without esophagitis: Code(s): K21.9 - Gastro-esophageal reflux disease without esophagitis Plan: Dietary restrictions reinforced (7) Psoriasis: Code(s): L40.9 - Psoriasis, unspecified Plan: Continue Fluocinonide 0.05% cream apply BID PRN (8) Chronic pansinusitis: Comment: S/P maxillary antrostomy and total ethmoidectomy back in September 2018, with significant improvement of his chronic symptoms initially - symptoms have been recurring frequently since Code(s): J32.4 - Chronic pansinusitis Plan: Patient continues to experience frequent/recurrent sinus congestion and pain despite past surgical intervention He was seen and evaluated by ENT at [facility] in [place] for his chronic sinus congestion and was scheduled for corrective surgery there last year but patient canceled his surgery due to housing issues with his family States that he will call them to reschedule his surgery once everything has settled down and he feels ready to get the surgery done (9) Osteoporosis: Code(s): M81.0 - Age-related osteoporosis without current pathological fracture Qualifiers: Osteoporosis type: unspecified Presence of current pathological fracture: without current pathological fracture Qualified Code(s): M81.0 - Age- related osteoporosis without current pathological fracture Plan: BMD done back in 2016 showed significantly low BMD for his age Patient has not been taking his Actonel for a while now as he was unable to tolerate it Follow up with endocrinology as scheduled for management of his osteoporosis (10) Depression: Code(s): F32.9 - Major depressive disorder, single episode, unspecified Qualifiers: Active/Remission status: currently active Depression Type: major depressive disorder Major depression episode severity: unspecified Major depression recurrence: recurrent Qualified Code(s): F33.9 - Major depressive disorder, recurrent, unspecified Plan: He was on Sertraline HCl Tablet, 50 MG QD in the past but patient apparently stopped taking it at some point although he is not sure exactly when States that he currently feels okay without any Rx for his mood Follow-up with Psychiatry as scheduled. (11) Obesity (BMI 30-39.9): Code(s): E66.9 - Obesity, unspecified Plan: Reinforced diet; exercise and weight loss are not realistic expectations at this time due to his physical issues and multiple comorbidities Plan Follow up in 3 months Orders: Orders XR knee RT 4V Today M25.561 - Pain in right knee Coding Level of Care Code Est Pt Level 4 (77222) Diagnoses Nonintractable epilepsy without status epilepticus, unspecified epilepsy type G40.909 Epilepsy type: unspecified Intractability: not intractable Status epilepticus: without status epilepticus Moderate persistent asthma without complication J45.40 Asthma complication type: uncomplicated Asthma persistence: persistent Asthma severity: moderate Pure hypercholesterolemia E78.00 Lumbar degenerative disc disease M51.36 Vitamin D deficiency E55.9 GERD without esophagitis K21.9 Psoriasis L40.9 Chronic pansinusitis J32.4 Osteoporosis without current pathological fracture, unspecified osteoporosis type M81.0 Osteoporosis type: unspecified Presence of current pathological fracture: without current pathological fracture Episode of recurrent major depressive disorder, unspecified depression episode severity F33.9 Active/Remission status: currently active Depression Type: major depressive disorder Major depression episode severity: unspecified Major depression recurrence: recurrent Obesity (BMI 30-39.9) E66.9
[2023-10-16 16:59] VITALS: BP 120/86; PULSE 80; O2SAT 96; BMI 40.7
== END 2023-10-16 17:54 | disposition home or self-care (01) ==
PROVIDERS: PCP Internal Medicine; Visit Provider Internal Medicine
DX: G40.909 Epilepsy, unspecified, not intractable, without status epilepticus (principal); F33.9 Major depressive disorder, recurrent, unspecified; J45.40 Moderate persistent asthma, uncomplicated; E78.00 Pure hypercholesterolemia, unspecified; M51.36 Other intervertebral disc degeneration, lumbar region; E55.9 Vitamin D deficiency, unspecified; K21.9 Gastro-esophageal reflux disease without esophagitis; L40.9 Psoriasis, unspecified; J32.4 Chronic pansinusitis; M81.0 Age-related osteoporosis without current pathological fracture; E66.9 Obesity, unspecified
CPT/HCPCS: 99214

== ENCOUNTER 2023-12-12 06:55 | Outpatient (REF) | payer OTHER, SELFPAY ==
--- NOTE | ~2023-12-12 | XR_ITS ---
EXAMINATION: XR KNEE, RIGHT CLINICAL INFORMATION: Right knee pain COMPARISON: None available. TECHNIQUE: Four views of the right knee. FINDINGS: There is moderate medial joint space narrowing. No fracture, dislocation or destructive process or joint effusion. XR/XR knee RT 4V IMPRESSION: No acute findings. Electronically signed by: Alejandro Byers MD 12/12/2023 12:14 PM [facility]
== END 2023-12-12 06:56 | disposition home or self-care (01) ==
LOC: HO.XRAY 06:55
PROVIDERS: PCP Internal Medicine; Visit Provider Internal Medicine
DX: M25.561 Pain in right knee (principal)
CPT/HCPCS: 73564

== ENCOUNTER 2024-03-21 13:13 | Emergency (ER) | payer OTHER, SELFPAY ==
[2024-03-21] VITALS (9 sets, daily range): BP systolic 110–149; BP diastolic 52–101; PULSE 94–126; RESP 18–26; TEMP 37.1–38.3; O2SAT 95–98; BMI 39.9
--- NOTE | ~2024-03-21 | XR_ITS ---
EXAMINATION: XR CHEST CLINICAL INFORMATION: cough, fevers COMPARISON: 05/30/2022. TECHNIQUE: Frontal view of the chest was obtained. FINDINGS: The cardiac, hilar, and mediastinal contours are normal. The lungs are clear bilaterally. No pneumothorax or effusion. No focal osseous or soft tissue abnormality. XR/XR chest 1V IMPRESSION: No active pulmonary disease. Electronically signed by: Bear Cordoba MD 03/21/2024 04:56 PM GARETH
--- NOTE | 2024-03-21 14:10 | ED.GENADULT ---
HPI - General Adult General Chief complaint: General Medical Stated complaint: SOB Time Seen by Provider: 03/21/24 14:17 Source: patient and EMS Mode of arrival: EMS Limitations: no limitations History of Present Illness ED Provider: DERIK HPI narrative: 39 yo male with PMH of asthma, HLD, psoriasis, GERD, depression, epilepsy but states he does not take seizure medications, chronic back pain on morphine here with c/o 2 days of cough, body aches, fevers, headaches, green bloody sputum. Unable to eat or drink. He denies travel or sick contacts. He feels weak and dizzy like he is going to pass out. He has diarrhea as well. MD complaint: viral illness, cough, fevers Onset (ago): day(s) (2) Location: head, mouth, chest, left, right, upper extremity and lower extremity Radiation: non-radiation Severity: severe Quality: aching Pain Consistency: constant Relieving factors: none Exacerbating factors: movement Associated symptoms: cough, fever/chills, headaches, loss of appetite, malaise, nausea/vomiting and weakness Treatments prior to arrival: none Related Data Home Medications ?Medication ?Instructions ?Recorded ?Confirmed ipratropium 0.5 mg-albuterol 3 mg 3 ml inhalation Q4H PRN 01/20/20 10/16/23 (2.5 mg base)/3 mL nebulization soln montelukast 10 mg tablet 10 mg PO DAILY 01/20/20 10/16/23 (Singulair) Previous Rx's ?Medication ?Instructions ?Recorded inhalational spacing device #2 ea 04/21/21 fluticasone propionate 50 1 spray intranasal DAILY #16 mL 02/27/22 mcg/actuation nasal spray,suspension naloxone 4 mg/actuation nasal 4 mg intranasal Q2M PRN opioid 05/10/22 spray (Narcan) overdose #2 ea NEBULIZER and all related supplies #1 ea 09/08/22 BACK BRACE #1 ea 03/21/23 HIP IMMOBILIZER #1 ea 03/21/23 levetiracetam 500 mg tablet 500 mg PO Q12H #60 tabs 05/21/23 (Keppra) cholecalciferol (vitamin D3) 50 50 mcg PO DAILY 90 days #90 caps 06/27/23 mcg (2,000 unit) capsule fluocinonide 0.05 % topical cream 1 appl topical BID PRN rash #60 06/27/23 grams cetirizine 10 mg tablet 10 mg PO DAILY #90 tabs 12/03/23 Symbicort 160 mcg-4.5 2 puff inhalation BID #10.2 grams 01/25/24 mcg/actuation HFA aerosol inhaler (budesonide-formoterol) albuterol sulfate 90 mcg/actuation 2 puff PO QID 30 days #18 grams 01/25/24 aerosol inhaler (Ventolin HFA) morphine 15 mg immediate release 15 mg PO Q6H PRN pain 28 days #112 03/19/24 tablet tabs morphine 30 mg tablet,extended 30 mg PO Q12H 28 days #56 tabs 03/19/24 release ibuprofen 600 mg tablet 600 mg PO Q6H PRN pain #30 tabs 03/21/24 ondansetron 4 mg disintegrating 4 mg PO Q8H PRN nausea and 03/21/24 tablet vomiting #20 tabs Allergies Allergy/AdvReac Type Severity Reaction Status Date / Time Iodinated Contrast Media Allergy Unknown breathing Verified 03/21/24 14:16 problems oxycodone [Tylox] Allergy Unknown swelling, Verified 03/21/24 14:16 rash Review of Systems Review of Systems: Constitutional : pos Fever, pos Chills ENT/Mouth : No Hoarseness, No sore throat, pos Rhinorrhea Eyes: No Redness, No Discharge, No Vision Changes Cardiovascular : No Chest Pain, positive SOB, positive Dyspnea on Exertion, No Edema Respiratory : positive Cough, pos Sputum, positive Wheezing, Gastrointestinal : No Nausea, No Vomiting, No Diarrhea, No abdominal Pain Genitourinary : No Dysuria, No Hematuria Musculoskeletal : No joint pain, No Myalgias Skin : No rash Neuro : pos Weakness, No Numbness, No Headache Psych : No anxiety, depression All other systems reviewed and are negative PMFSH Past Medical History Attestation statement: The following information was validated with the patient. Source: old records reviewed Medical History Vitamin D deficiency Obesity (BMI 30-39.9) Depression Epilepsy Osteoporosis GERD without esophagitis Lumbar degenerative disc disease Pure hypercholesterolemia Asthma Scalp psoriasis Exposure to STD Chronic pansinusitis Surgical History History of surgery History of sinus surgery Family History Family History Father Medical history unknown Mother Cancer Social History Social History Housing: House Alcohol intake: never Patient Tobacco Use Status: Never used Tobacco e-Cigarette/Vaping Use: Never Used Second Hand Smoke Exposure: Yes Advance Directives: No Advance Directives Information Provided: Yes service: No Current occupational status: employed 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 Oriented X3. No acute distress. Eyes: Pupils equal, round and reactive to light. ENT: Pharynx normal. Neck: Normal inspection. Neck supple. CVS: Normal heart rate and rhythm. Pulses normal. Respiratory: No respiratory distress. Breath sounds normal. Abdomen: Soft and non-tender. Skin: Skin warm and dry. Normal skin color. Normal skin turgor. Extremities: No lower extremity edema. No calf ttp Neuro: Oriented X 3. No motor deficit. No sensory deficit. CN2-12 intact Course Course Course Narrative: RME, this is a rapid medical exam performed by Neno Hagan please refer to primary provider for complete H&P- 39-year-old male presents for evaluation of fevers. He does have a fever of 101 in triage. He has a heart rate of 120 and meets sepsis criteria. He was brought back to the main ED. I ordered labs including blood cultures, viral swabs Reevaluation(s) Reevaluation #1: I Shantal Clements PA-C have accepted care of the patient and signed out pending chest x-ray and likely discharge home Chest x-ray, XR/XR chest 1V IMPRESSION: No active pulmonary disease. Electronically signed by: Bear Cordoba MD 03/21/2024 04:56 PM EST Medications Administered Discontinued Medications Generic Name Dose Route Start Last Admin Trade Name Freq PRN Reason Stop Dose Admin Ceftriaxone Sodium 1 gm 03/21/24 14:19 03/21/24 15:15 Ceftriaxone Sodium 1 Gm Vial IVPUSH 03/21/24 14:20 1 gm ONCE ONE Administration Fentanyl 50 mcg 03/21/24 14:27 03/21/24 14:35 Fentanyl Citrate/Pf 100 Mcg/2 Ml Vial IVPUSH 03/21/24 14:28 50 mcg ONCE ONE Administration Protocol Sodium Chloride 1,000 mls @ 999 mls/hr 03/21/24 14:19 03/21/24 15:30 Ns IV 03/21/24 15:19 Infused .Q1H1M ONE Infusion Sodium Chloride 1,000 mls @ 999 mls/hr 03/21/24 14:19 03/21/24 17:00 Ns IV 03/21/24 15:19 Infused .Q1H1M ONE Infusion Acetaminophen 1,000 mg in 100 mls @ 400 mls/hr 03/21/24 14:27 03/21/24 14:51 Ofirmev IV 03/21/24 14:41 Infused ONCE ONE Infusion Ondansetron HCl 4 mg 03/21/24 14:19 03/21/24 14:32 Ondansetron Hcl 4 Mg/2 Ml Vial IVPUSH 03/21/24 14:20 4 mg ONCE ONE Administration Oseltamivir Phosphate 75 mg 03/21/24 16:23 03/21/24 16:48 Oseltamivir Phosphate 75 Mg Capsule PO 03/21/24 16:24 75 mg ONCE ONE Administration Medical Decision Making Medical Decision Making MDM Narrative: 39 yo male with PMH of asthma, HLD, psoriasis, GERD, depression, epilepsy here with c/o viral like illness, cough with green and blood tinged sputum, fevers - at this time sepsis alert called IV tylenol, IV morphine for supportive care, viral panel, cultures, IV ceftriaxone ordered. Possible flu, dehydration, pneumonia. Differential Diagnosis Differential Diagnoses: The differential diagnosis associated with the presentation includes flu, dehydration, viral panel Admission/Observation Consideration of admission/observation: Escalation of care including admission/observation considered VS improved up and walking tolerating PO at this time stable for DC Lab Data MDM Lab Attestation statement: I reviewed the patient's lab results. 03/21/24 15:11 03/21/24 15:11 Labs: Lab Results 03/21/24 03/21/24 Range/Units 15:11 15:34 WBC 7.3 (4.8-10.8) X10*3/uL RBC 4.98 (4.60-5.80) X10*6/uL Hgb 14.8 (14.0-18.0) g/dl Hct 43.0 (42.0-52.0) % MCV 86.3 (80.0-98.0) fL MCH 29.7 (27.0-33.0) pg MCHC 34.4 (31.0-36.0) g/dl RDW 13.2 (11.0-16.0) % Plt Count 143 L D (160-400) X10*3/uL MPV 9.3 L (9.4-12.4) fL Immature Gran % (Auto) 0.4 (0.0-0.4) % Neut % (Auto) 80.4 H (45-73) % Lymph % (Auto) 11.3 L (20-40) % [place] % (Auto) 7.2 (2-11) % Eos % (Auto) 0.4 (0-4) % Baso % (Auto) 0.3 (0-2) % Lymph # (Auto) 0.8 L (1.2-4.9) X10*3/uL [place] # (Auto) 0.5 (0.1-1.2) X10*3/uL Eos # (Auto) 0.0 (0.0-0.4) X10*3/uL Baso # (Auto) 0.0 (0.0-0.2) X10*3/uL Abs Immat Gran (auto) 0.03 (0.00-0.03) X10*3/uL Absolute Neuts (auto) 5.9 (2.0-8.3) x10*3/uL Absolute Nucleated RBC 0.000 (0.0-0.012) X10*3/uL Nucleated RBC % (auto) 0.0 (0.0-0.2) /100WBC Sodium 137 (135-145) mmol/L Potassium 4.0 (3.3-5.1) mmol/L Chloride 107 (96-108) mmol/L Carbon Dioxide 22 (22-29) mmol/L Anion Gap 12 (12-20) BUN 9 (9-16) mg/dL Creatinine 0.95 (0.5-1.4) mg/dL Estim Creat Clear Calc 125.6 Estimated GFR > 60 Random Glucose 106 (60-115) mg/dL Lactic Acid 0.9 (0.5-2.0) mmol/L Calcium 8.6 D (8.4-10.2) mg/dL Total Bilirubin 0.5 (0.0-1.0) mg/dL AST 48 H (5-37) U/L ALT 51 H (0-40) U/L Alkaline Phosphatase 69 (39-117) U/L Total Protein 7.2 (6.5-8.0) g/dL Albumin 4.1 (3.5-5.0) g/dL Lipase 8 (8-78) U/L Influenza Type A (PCR) POSITIVE A (Negative) Influenza Type B (PCR) NEGATIVE (Negative) RSV RNA Qual (PCR) NEGATIVE (Negative) SARS-CoV-2 RNA (RT-PCR) NEGATIVE (Negative) Independent Interpretation I performed an independent interpretation of an: Plain X-Ray (no pneumonia) Radiology Impression Discussion of test interpretation with radiology: I have reviewed the radiologist's reading. Independent Historian Clinical information obtained from an independent historian. History obtained from or confirmed by: Friend and EMS External Record Review External record reviewed: Outpatient record Prescription Management I considered prescription management with: Pain Medication, Antiviral and Other Discharge Plan Discharge Clinical Impression: Influenza A Patient Disposition: Home, Self-Care Instructions: Influenza (ED) Additional Instructions: labs reassuring positive for flu at this time rest, stay hydrated, take tylenol and motrin as needed for fevers and pain chest xray normal next dose of tamiflu is tomorrow morning Prescriptions: New ondansetron 4 mg tablet,disintegrating 4 mg PO Q8H PRN (Reason: nausea and vomiting) Qty: 20 0RF ibuprofen 600 mg tablet 600 mg PO Q6H PRN (Reason: pain) Qty: 30 0RF No Action (DME) inhalational spacing device Spacer See Rx Instructions .Route Qty: 2 0RF Rx Instructions: As directed fluticasone propionate 50 mcg/actuation spray,suspension 1 spray intranasal DAILY Qty: 16 3RF naloxone [Narcan] 4 mg/actuation spray,non-aerosol 4 mg intranasal Q2M PRN (Reason: opioid overdose) Qty: 2 0RF Rx Instructions: spray 1 dose into ONE nostril; alternate nostrils w each dose until help arrives (DME) HIP IMMOBILIZER See Rx Instructions .Route .MEDSUPPLY Qty: 1 0RF Rx Instructions: As directed (DME) BACK BRACE See Rx Instructions .Route .MEDSUPPLY Qty: 1 0RF Rx Instructions: As directed cetirizine 10 mg tablet 10 mg PO DAILY Qty: 90 1RF albuterol sulfate [Ventolin HFA] 90 mcg/actuation HFA aerosol inhaler 2 puff PO QID 30 Days Qty: 18 5RF budesonide-formoterol [Symbicort] 160-4.5 mcg/actuation HFA aerosol inhaler 2 puff inhalation BID Qty: 10.2 3RF morphine 15 mg tablet 15 mg PO Q6H PRN (Reason: pain) 28 Days Qty: 112 0RF morphine 30 mg tablet extended release 30 mg PO Q12H 28 Days Qty: 56 0RF levetiracetam [Keppra] 500 mg tablet 500 mg PO Q12H Qty: 60 0RF ipratropium-albuterol 0.5 mg-3 mg(2.5 mg base)/3 mL solution for nebulization 3 ml inhalation Q4H PRN montelukast [Singulair] 10 mg tablet 10 mg PO DAILY (DME) NEBULIZER and all related supplies See Rx Instructions .Route .MEDSUPPLY Qty: 1 0RF Rx Instructions: Use as directed fluocinonide 0.05 % cream 1 appl topical BID PRN (Reason: rash) Qty: 60 1RF cholecalciferol (vitamin D3) 50 mcg (2,000 unit) capsule 50 mcg PO DAILY 90 Days Qty: 90 3RF Print Language: Mosotho
[2024-03-21] MEDS: 0.9 % Sodium Chloride 1,000 ML 999 ML IV ×2 (14:29)
[2024-03-21] MEDS: ondansetron HCL 4 MG/2 ML VIAL IVPUSH (14:32)
[2024-03-21] MEDS: fentaNYL citrate/PF 100 MCG/2 ML VIAL 50 MCG IVPUSH (14:35)
[2024-03-21] MEDS: Acetaminophen 1,000 MG/100 ML PIGGYBACK 400 MG IV (14:36)
--- NOTE | 2024-03-21 14:49 | MHC.EDTECH ---
Tried twice to stck patient but was unsuccessful. RN aware.
--- OUTSIDE RECORDS SUMMARY | 2024-03-21 14:50 | XMS_ITS | Referral Summary ---
Author Organization [facility] Address [address] [place] [address] Care Team Providers Care Truss Driver Helper Name Role Phone Jairon Rodriguez Primary Care Provider [phone] Allergies Active Allergy Reactions Criticality Noted Date Comments Iodinated Contrast Media Rash Medium 05/17/2017 Latex, Natural Rubber Dermatitis Medium 03/12/2017 Oxycodone-Acetaminophen Unknown 03/12/2017 Medications morphine ER (MS CONTIN) 30 mg tablet Take 30 mg by mouth 2 times a day. Active morphine IR 15 mg tablet Take 15 mg by mouth every 4 hours as needed for pain. Active nebulizers misc Acti ve budesonide-formote roL (SYMBICORT) 160-4.5 mcg inhaler Inhale 2 puffs by mouth 2 times a day. Rinse mouth with water after use. Do not swallow. Active gentamicin (GARAMYCIN) 0.3% ophthalmic solutionIndication s:Chronic maxillary sinusitis MIX 1 ML OF GENTAMICIN WITH 20 ML OF SALINE. IRRIGATE THE LEFT NASAL PASSAGE AND SINUS WITH THE MIXTURE THREE TIMES DAILY. 60 mL 1 01/04/20 22 Active sodium chloride 0.9% irrigationIndicati ons:Chronic maxillary sinusitis USE FOR CREATING ANTIBIOTIC NASAL IRRIGATION. 100 mL 1 01/04/20 22 Active albuterol (PROAIR HFA,VENTOLIN HFA) 90 mcg inhaler Inhale 2 puffs by mouth 4 (four) times daily. Active carisoprodoL (SOMA) 350 mg tablet Take 350 mg by mouth 4 times a day as needed for muscle spasms. Active acetaminophen (TYLENOL) 500 mg tablet Take 500 mg by mouth every 6 hours as needed for pain. Active naproxen sodium 220 mg capsule Take 220 mg by mouth every 12 hours. Active ondansetron (ZOFRAN ODT) 4 mg disintegrating tablet Dissolve 1 tablet (4 mg total) in the mouth every 8 hours as needed for nausea or vomiting. 4 tablet 03/13/19 Active sodium chloride (OCEAN NASAL SPRAY) 0.65% nasal spray Administer 2 mL (2 sprays total) into each nostril as needed for congestion. 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 12/26/2021 Immunizations Immunization Administration Dates Next Due Tetanus Toxoid, Reduced Diph theria Toxoid, and Acellular Pertussis Vaccine, Adsorbed 02/28/2011 Social History Tobacco Use Types Packs/Day Years Used Date Smoking Tobacco: Never Smokeless Tobacco: Never Tobacco Cessation:Counseling Given: Not Answered Alcohol Use Standard Drinks/Week Comments Not Currently 0 (1 standard drink = 0.6 oz pur e alcohol) Sex and Gender Information Value Date Recorded Sex Assigned at Not on file Legal Sex Male 11:44 AM EDT Gender Identity Not on file Sexual Orientation Not on file Last Filed Vital Signs Vital Sign Reading Time Taken Comments Blood Pressure 146/80 05/18/2022 3:01 PM EDT Pulse 126 05/18/2022 3:01 PM EDT Temperature 36.9 ??C (98.4 ??F) 05/18/2022 3:01 PM ED T Respiratory Rate 18 03/23/2022 4:54 PM EST Oxygen Saturation 93% 05/18/2022 3:01 PM EDT Inhaled Oxygen Concentration - - Weight 117.2 kg (258 lb 6.4 oz) 05/18/2022 3:01 PM EDT Height 170.2 cm (5' 7 ) 05/18/2022 3:01 PM EDT Body Mass Index 40.47 05/18/2022 3:01 PM EDT Plan of Treatment Not on file Medical Devices Implanted Type Area Security Assurance Analyst Device Identifier Shelf Expiration Date Model / Serial / Lot Implant Sinus Mometasone Furoate Contour 8mm Propel - [id number] Implanted:Qty: 1 on 03/13/2022 by Guevara Rose MD at [facility] Implant Left: Sinus INTERSECT ENT 10/07/2022 [id number] / / [id number] Insurance [employer] Advance Directives * Full Code (Latest Code Status on File) Date Activated Date Inactivated Comments 03/13/2022 10:10 AM 03/13/2022 6:37 PM Care Teams Truss Driver Helper Relationship Specialty Start Date End Date Jairon Rodriguez [address] [place] [address] [place] [address] PCP - General Internal Medicine 12/01/21
--- OUTSIDE RECORDS SUMMARY | 2024-03-21 14:51 | XMS_ITS | Clinical Summary ---
Author Organization [facility] Address [address] [place] [address] Care Team Providers Care Documentation Engineer Name Role Phone Jairon Rodriguez Primary Care Provider [phone] Allergies Active Allergy Reactions Criticality Noted Date [...] Toxoid, and Acellular Pertussis Vaccine, Adsorbed 02/28/2011 Family History Medical History Relation Name Comments Heart disease Father Kidney disease Father Cancer Mother Relation Name Status Comments Father Alive Mother Alive Social History Tobacco Use Types Packs/Day Years [...] 05/18/2022 3:01 PM EDT Plan of Treatment Health Maintenance Due Date Last Done Comments HIV Screening 1984 Hepatitis C Screening 1984 Varicella Vaccines (1 of 2 - 13+ 2-dose series) 01/27/1997 Hepatitis B Vaccines (1 of 3 - 19+ 3-dose series) 01/27/2003 DTaP,Tdap,and Td Vaccines (2 - Td or Tdap) 02/28/2021 02/28/2011 COVID-19 Vaccine (1 - 2023-2 5 season) 2023 Influenza Vaccine (#1) 2023 Alcohol/Substance Use Screening 02/06/2024 Depression Screening and Follow-Up 02/06/2024 Social Drivers of Health Jennyfer ual Screening 02/06/2024 RSV Vaccine (60+ years old a nd patients) (1 - 1-dose 75+ series) 01/27/2059 Pneumococcal Vaccine: Pediat robert (0-5 Years) and At-Risk Patients (6-50 Years) Aged Out No longer eligible b ased on patient's age to complete this topic Medical Devices Implanted Type Area Desk Top Publisher Device Identifier Shelf Expiration Date Model / Serial / Lot Implant Sinus Mometasone Furoate Contour 8mm Propel - [id number] Implanted:Qty: 1 on 03/13/2022 by Guevara Rose MD at [facility] Implant Left: Sinus INTERSECT ENT 10/07/2022 [id number] / / [id number] Insurance [facility] MEDICAID Advance Directives * Full Code (Latest Code Status on File) Date Activated Date Inactivated Comments 03/13/2022 10:10 AM 03/13/2022 6:37 PM Care Teams Documentation Engineer Relationship Specialty Start Date End Date Jairon Rodriguez [address] [place] [address] [place] [address] PCP - General Internal Medicine 12/01/21
[2024-03-21] MEDS: cefTRIAXone sodium 1 GM VIAL IVPUSH (15:15)
[2024-03-21 15:17] LABS: MANUAL DIFF FLAG NO
[2024-03-21 15:22] LABS: Basophils Percent Auto 0.3 % (0-2); Eosinophils Percent Auto 0.4 % (0-4); Hemoglobin 14.8 g/dl (14.0-18.0); Imm Gran Abs Auto 0.03 X10*3/uL (0.00-0.03); Imm Gran Pct Auto 0.4 % (0.0-0.4); Lymphocytes Absolute Auto 0.8 X10*3/uL (1.2-4.9); Lymphocytes Percent Auto 11.3 % (20-40); Mean Corpuscular HGB Conc 34.4 g/dl (31.0-36.0); Mean Corpuscular Hemoglobin 29.7 pg (27.0-33.0); Mean Corpuscular Volume 86.3 fL (80.0-98.0); Mean Platelet Volume 9.3 fL (9.4-12.4); Monocytes Absolute Auto 0.5 X10*3/uL (0.1-1.2); Monocytes Percent Auto 7.2 % (2-11); Neutrophils Absolute Auto 5.9 x10*3/uL (2.0-8.3); Neutrophils Percent Auto 80.4 % (45-73); Platelet Count 143 X10*3/uL (160-400); Red Blood Count 4.98 X10*6/uL (4.60-5.80); Red Cell Distribution Width 13.2 % (11.0-16.0); White Blood Count 7.3 X10*3/uL (4.8-10.8)
[2024-03-21 15:39] LABS: Alanine Aminotransferase 51 U/L (0-40); Albumin Level 4.1 g/dL (3.5-5.0); Anion Gap 12 (12-20); Aspartate Amino Transferase 48 U/L (5-37); Bilirubin Total 0.5 mg/dL (0.0-1.0); Blood Urea Nitrogen 9 mg/dL (9-16); Calcium 8.6 mg/dL (8.4-10.2); Carbon Dioxide 22 mmol/L (22-29); Chloride 107 mmol/L (96-108); Creatinine Clr Calc Pharmacy 125.6; Estimated Glomerular Filt Rate > 60; Glucose Random 106 mg/dL (60-115); Lipase 8 U/L (8-78); Sodium 137 mmol/L (135-145); Total Protein 7.2 g/dL (6.5-8.0)
[2024-03-21 15:51] LABS: Lactic Acid 0.9 mmol/L (0.5-2.0)
[2024-03-21 15:56] LABS: Influenza A PCR POSITIVE (Negative); Influenza B PCR NEGATIVE (Negative); Resp Syncy Virus RNA Qual PCR NEGATIVE (Negative); SARS COV2 PCR INHOUSE NEGATIVE (Negative)
[2024-03-21 15:57] LABS: Alkaline Phosphatase 69 U/L (39-117)
[2024-03-21] MEDS: Oseltamivir Phosphate 75 MG CAPSULE PO (16:48)
--- NOTE | 2024-03-21 17:42 | PC.NURSE ---
Sepsis worksheet submitted to [employer].
--- NOTE | 2024-03-21 18:13 | PC.NURSE ---
Pts capital equipment specialist alert this RN that [facility] reports zero supply of Tamiflu d/t back order CAROLIN Clements supplies paper Rx for Pt to use at any pharmacy with supply. Pt in agreement with this plan. Pt d/c'd.
== END 2024-03-21 18:15 | disposition home or self-care (01) ==
PROVIDERS: Physician Assistant; Emergency Provider Emergency Medicine; PCP Internal Medicine
DX: J10.1 Influenza due to other identified influenza virus with other respiratory manifestations (principal); R06.02 Shortness of breath; R50.9 Fever, unspecified; R05.9 Cough, unspecified; M79.10 Myalgia, unspecified site; R51.9 Headache, unspecified; Z03.818 Encounter for observation for suspected exposure to other biological agents ruled out; Z79.899 Other long term (current) drug therapy
CPT/HCPCS: 0241U; 71045; 80053; 83605; 83690; 85025; 87040; 96361; 96374; 96375; 99284; J0131; J0696; J2405; J3010

== ENCOUNTER → 2024-03-21 16:01 | Outpatient (BNV) | payer OTHER, SELFPAY | PROVIDERS: Emergency Provider Emergency Medicine; PCP Internal Medicine; Visit Provider Radiology Diagnostic Radiology | DX: R05.9 Cough, unspecified (principal); R50.9 Fever, unspecified | CPT/HCPCS: 71045 ==

== ENCOUNTER → 2024-03-28 17:18 | Outpatient (BNVA) | payer OTHER, SELFPAY | PROVIDERS: PCP Internal Medicine ==

== ENCOUNTER 2024-04-01 15:41 | Outpatient (AMB) | payer OTHER, SELFPAY ==
--- NOTE | 2024-04-01 16:20 | A.OFFPC_ITS ---
Vital Signs 04/01/24 16:21 Height 5 ft 7 in Weight 266 lb BMI 41.7 BP 140/90 H Blood Pressure Location Lt brachial Position Sitting Pulse 101 H Pulse Source Pulse Oximeter Temp 97.3 F Temp Source Temporal Artery Scan Pulse Oximetry (%) 96 Oxygen Delivery Method Room Air Intake Visit Reasons: [facility] 03/21 Manager General Required: No Accompanied by: Self / Same As Patient Allergies Iodinated Contrast Media Allergy (Unknown, Verified 04/05/24 17:15) breathing problems oxycodone [Tylox] Allergy (Unknown, Verified 04/05/24 17:15) swelling, rash Medication List - Last Reconciled 04/05/24 by IAN Owens albuterol sulfate 90 mcg/actuation (Ventolin HFA) 2 puffs PO QID 30 days amoxicillin-pot clavulanate 875-125 mg 1 tab PO BID 10 days [BACK BRACE As directed] carisoprodol 350 mg PO QID PRN NS cetirizine 10 mg PO DAILY cholecalciferol (vitamin D3) 50 mcg PO DAILY 90 days fluocinonide 0.05% 1 appl topical BID PRN fluticasone propionate 50 mcg/actuation 1 spray intranasal DAILY [HIP IMMOBILIZER As directed] ibuprofen 600 mg PO Q6H PRN inhalational spacing device As directed ipratropium-albuterol 0.5 mg-3 mg(2.5 mg base)/3 mL 3 mL inhalation Q4-6H PRN levetiracetam (Keppra) 500 mg PO Q12H montelukast (Singulair) 10 mg PO DAILY morphine 15 mg PO Q6H PRN 28 days morphine ER 30 mg PO Q12H 28 days naloxone 4 mg/actuation (Narcan) 4 mg intranasal Q2M PRN [NEBULIZER and all related supplies Use as directed] ondansetron 4 mg PO Q8H PRN Symbicort 160-4.5 mcg/actuation (budesonide-formoterol) 2 puffs inhalation BID NS Tobacco use date assessed: 04/01/24 Dental Screening Dental Screen Date: 04/01/24 Did you have a dental visit in the last 12 months?: No Did you have a dental problem in the last 6 months where you did not have access to dental care?: No Was dental information given to patient?: Patient has dentist HPI [facility] 03/21 HPI Details The patient is a 39-year-old male with past medical history of asthma, HLD, psoriasis, GERD, depression, epilepsy, chronic back pain on morphine. Patient of Dr. Rodriguez, last seen in office on 10/16/2023 Patient is presenting today for post hospital visit follow up The patient presented [place] [facility] [place]24 with complaints of 2 days of cough, body aches, fevers 103, headaches, and green bloody sputum. Reports that he was unable to eat or drink. He also had diarrhea as well. The patient had a temp of 101 degrees. He was treated with IV Tylenol and morphine initially The patient was found to be positive for flu A. Chest x-ray was normal. Patient was started on Tamiflu. He was also given ondansetron 4 mg and ibuprofen 600mg PRN In office: The patient complained that his breathing is not back to baseline The patient is speaking in full sentences, no dyspnea her acute respiratory distress noted Loud expiratory wheezes on exam throughout Reports that his chest gets tight when he lays flat Patient also requested to get his narcotic contract completed [facility] Medical History Vitamin D deficiency Obesity (BMI 30-39.9) Depression Epilepsy Osteoporosis GERD without esophagitis Lumbar degenerative disc disease Pure hypercholesterolemia Asthma Scalp psoriasis Exposure to STD Chronic pansinusitis Surgical History History of surgery History of sinus surgery Family History Father Medical history unknown Mother Cancer Social History Housing: House Alcohol intake: never Patient Tobacco Use Status: Never used Tobacco e-Cigarette/Vaping Use: Never Used Second Hand Smoke Exposure: Yes service: No Current occupational status: employed 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 1. Little interest or pleasure in doing things: several days 2. Feeling down, depressed, or hopeless: several days 3. Trouble falling or staying asleep, or sleeping too much: several days 4. Feeling tired or having little energy: several days 5. Poor appetite or overeating: not at all 6. Feeling bad about yourself - or that you are a failure or have let yourself or your family down: not at all 7. Trouble concentrating on things, such as reading the newspaper or watching television: not at all 8. Moving or speaking so slowly that other people could have noticed. Or the opposite - being so fidgety or restless that you have been moving around a lot more than usual: not at all 9. Thoughts that you would be better off or of hurting yourself in some way: not at all Total score: 4 Depression Screening Interpretation: Positive Depression Screening Done: Yes 54304 - PHQ-9 Billing: Yes Source: Developed by Drs. Wily Narayanan, Emily Reynaga, Damian Kan and colleagues, with an educational chi from [employer]. Thrive Questionnaire Date Thrive assessed: 04/01/24 I am a: Patient What is your living situation today?: I have a steady place to live Within the past 12 months, did the food you bought not last and you didn't have the money to get more?: Never true Within the past 12 months, did you worry whether your food would run out before you got money to buy more?: Never true Do you have trouble paying for medicines?: No Do you have trouble getting transportation to medical appointments?: No Do you have trouble paying your heating and electricity bill?: No Do you have trouble taking care of your child, family member or friend?: No Do you have trouble with day-to-day activities such as bathing, preparing meals, shopping, managing finances, etc.?: No Are you currently unemployed and looking for a job?: No Are you interested in more education?: No Please select the resources that you would like help with: None Currently or been in a relationship where the following occur: No concerns reported THRIVE Score: 0 AUDIT C Alcohol Use Questionnaire (AUDIT-C) 1. How often do you have a drink containing alcohol?: Never Total Score: 0 DIMITRY-7 AMB Questionnaire DIMITRY-7 Date DIMITRY - 7 assessed: 02/25/25 Feeling nervous, anxious, or on edge: 0 = Not at all Not being able to stop or control worryin = Not at all Worrying too much about different things: 0 = Not at all Trouble relaxin = Not at all Being so restless that it is hard to sit still: 0 = Not at all Becoming easily annoyed or irritable: 0 = Not at all Feeling afraid as if something awful might happen: 0 = Not at all Total DIMITRY-7 score (0-4 normal; 5-9 mild; 10-14 moderate; 15-21 severe): 0 Source: Developed by Drs. Wily Narayanan, Emily Reynaga, Damian Kan and colleagues, with an educational chi from [employer]. DIMITRY-7 Assessment Billing DIMITRY-7 Assessment Tool: DIMITRY-7 Assessment 01631 Review of Systems Const Details: Denies chills, Denies fatigue, Denies fever(s), Denies headache(s) and Denies weakness HEENT Denies change in vision, Denies dizziness, Denies headache(s), Denies hearing loss, Denies nasal congestion, Denies sinus pain, Denies sinus pressure and Denies sore throat Card Denies chest pain,+ chest tightness with laying flat, Denies lightheadedness, +dyspnea and Denies other (palpitations) Resp + cough, +dyspnea and +wheezing GI Denies abdominal pain, Denies melena, Denies hematochezia, Denies change in bowel habits, Denies dyspepsia and Denies nausea Denies hematuria and Denies dysuria Musc Denies abnormal gait, reports chronic back pain, Denies numbness and Denies tingling Physical exam (Primary Care) Vital Signs: Last Vital Signs Temp 97.3 F 04/01/24 16:21 Pulse 101 H 04/01/24 16:21 BP 140/90 H 04/01/24 16:21 Pulse Ox 96 04/01/24 16:21 Oxygen Delivery Method Room Air 04/01/24 16:21 BMI result Body Mass Index 41.7 Tobacco/Smoking Status: Tobacco use Status Tobacco use date assessed 04/01/24 04/01/24 16:26 Patient Tobacco Use Status Never used Tobacco 04/01/24 16:26 e-Cigarette/Vaping Use Never Used 02/25/25 16:26 PHQ-9: PHQ-9 Score PHQ-9: Total score 4 04/01/24 16:57 Depression Screening Interpretation: Positive Thrive Assessment: Date of Thrive Assessment Date Thrive assessed 04/01/24 04/01/24 16:26 Currently or been in a relationship where the following occur: No concerns reported Const Other: General: no acute distress, well developed, alert and awake Nutritional Appearance: well nourished Orientation/consciousness: patient oriented x3 HENMT Head: Yes normocephalic and Yes atraumatic Ears: hearing grossly normal bilaterally and TM's normal bilaterally General nose exam: Normal external nose present and erythematous nares present Mouth: Normal oral and palatal mucosa present and moist mucous membranes Teeth and gingiva: dentition normal Throat: Yes oropharynx normal Eyes Pupils: Equal, round and reactive pupils present and Pupil accommodation reflex normal EOM: EOMs intact bilaterally Neck Neck: Yes normal visual inspection, Yes no lymphadenopathy Thyroid: Thyroid normal Lymphatic: no lymphadenopathy noted Resp Effort & Inspection: normal respiratory effort Auscultation: Loud expiratory wheezes throughout Cardio Rate: regular rate Rhythm: regular rhythm Heart sounds: S1 normal heart sound present, S2 normal heart sound present, no gallops, no murmurs and no rubs GI Palpation (GI): Abdomen is soft and nontender to palpation Auscultation: normal bowel sounds General: Yes no CVA tenderness Back/Spine/Pelvis Back: no CVA tenderness Cervical Spine: cervical ROM normal and No Cervical spine tenderness Thoracic/Lumbar Spine: Lumbar tenderness Coding Level of Care Code Est Pt Level 4 (69407) Diagnoses Upper respiratory tract infection, unspecified type J06.9 URI type: unspecified URI Moderate asthma with exacerbation, unspecified whether persistent J45.901 Asthma severity: moderate Asthma persistence: unspecified Narcotic drug use F11.90 Additional Codes PHQ-9 - 85342 - PHQ-9 Billing: Yes ([id number]) DIMITRY-7 Assessment Billing - DIMITRY-7 Assessment Tool: DIMITRY-7 Assessment 62036 ([id number]) Time Spent (min) 36 Assessment & Plan Assessment & Plan (1) Upper respiratory infection: Code(s): J06.9 - Acute upper respiratory infection, unspecified Category: Medical Qualifiers: URI type: unspecified URI Qualified Code(s): J06.9 - Acute upper re spiratory infection, unspecified Plan: Augmentin b.i.d. times 10 days ordered Continue breathing treatments per scheduled and as needed (2) Asthma exacerbation: Code(s): J45.901 - Unspecified asthma with (acute) exacerbation Category: Medical Qualifiers: Asthma severity: moderate Asthma persistence: unspecified Qualified Code(s): J45.901 - Unspecified asthma with (acute) exacerbation Plan: Patient was treated in the hospital for asthma exacerbation in the setting of flu A Continue Symbicort b.i.d., rescue inhaler, and nebulizer treatment as needed (3) Narcotic drug use: Code(s): F11.90 - Opioid use, unspecified, uncomplicated Category: Social Hx Plan: Drug screening and narcotic contract completed Orders: Orders Drug Screen Urine 04/01/24 F11.90 - Opioid use, unspecified, uncomplicated Medications: New amoxicillin-pot clavulanate 875-125 mg 1 tab PO BID 10 days 20 tabs 0RF
[2024-04-01 16:21] VITALS: BP 140/90; PULSE 101; TEMP 36.3; O2SAT 96; BMI 41.7
--- OUTSIDE RECORDS SUMMARY | 2024-04-01 19:25 | XMS_ITS | Referral Summary ---
Author Organization [facility] Address [address] [place] [address] Care Team Providers Care Marine Scientist Name Role Phone Jairon Rodriguez Primary Care Provider [phone] Allergies Active Allergy Reactions Criticality Noted Date [...] on file Medical Devices Implanted Type Area Corporate Safety Coordinator Device Identifier Shelf Expiration Date Model / Serial / Lot Implant Sinus Mometasone Furoate Contour 8mm Propel - [id number] Implanted:Qty: 1 on 03/13/2022 by Guevara Rose MD at [facility] Implant Left: Sinus INTERSECT ENT 10/07/2022 [id number] / / [id number] Insurance [employer] Advance Directives * Full Code (Latest Code Status on File) Date Activated Date Inactivated Comments 03/13/2022 10:10 AM 03/13/2022 6:37 PM Care Teams Marine Scientist Relationship Specialty Start Date End Date Jairon Rodriguez [address] [place] [address] [place] [id number] PCP - General Internal Medicine 12/01/21
--- OUTSIDE RECORDS SUMMARY | 2024-04-01 19:25 | XMS_ITS | Clinical Summary ---
Author Organization [facility] Address [address] [place] [address] Care Team Providers Care Lubrication Servicer Name Role Phone Jairon Rodriguez Primary Care Provider [phone] Allergies Active Allergy Reactions Criticality Noted Date [...] this topic Medical Devices Implanted Type Area Geosciences Professor Device Identifier Shelf Expiration Date Model / Serial / Lot Implant Sinus Mometasone Furoate Contour 8mm Propel - [id number] Implanted:Qty: 1 on 03/13/2022 by Guevara Rose MD at [facility] Implant Left: Sinus INTERSECT ENT 10/07/2022 [id number] / / [id number] Insurance [facility] MEDICAID Advance Directives * Full Code (Latest Code Status on File) Date Activated Date Inactivated Comments 03/13/2022 10:10 AM 03/13/2022 6:37 PM Care Teams Lubrication Servicer Relationship Specialty Start Date End Date Jairon Rodriguez [address] [place] [address] [place] [address] PCP - General Internal Medicine 12/01/21
== END 2024-04-01 17:34 | disposition home or self-care (01) ==
PROVIDERS: PCP Internal Medicine
DX: J06.9 Acute upper respiratory infection, unspecified (principal); J45.901 Unspecified asthma with (acute) exacerbation; F11.90 Opioid use, unspecified, uncomplicated

== ENCOUNTER → 2024-04-01 15:41 | Outpatient (BNVA) | payer OTHER, SELFPAY | PROVIDERS: PCP Internal Medicine | DX: J06.9 Acute upper respiratory infection, unspecified (principal); J45.901 Unspecified asthma with (acute) exacerbation; F11.90 Opioid use, unspecified, uncomplicated | CPT/HCPCS: 96127; 99212 ==

== ENCOUNTER 2024-04-25 15:30 | Outpatient (AMB) | payer OTHER, SELFPAY ==
[2024-04-25 15:49] VITALS: BP 122/80; PULSE 84; O2SAT 96; BMI 41.9
--- NOTE | 2024-04-25 15:49 | A.OFFPC_ITS ---
Vital Signs 04/25/24 15:49 Height 5 ft 7 in Weight 267 lb 8 oz BMI 41.9 BP 122/80 Blood Pressure Location Lt brachial Position Sitting Pulse 84 Pulse Source Pulse Oximeter Pulse Oximetry (%) 96 Oxygen Delivery Method Room Air Intake Visit Reasons: 3 Month F/U antionette 01/13 [employer] Rep[employer]r Required: No Accompanied by: Self / Same As Patient Allergies Iodinated Contrast Media Allergy (Unknown, Verified 04/25/24 16:17) breathing problems oxycodone [Tylox] Allergy (Unknown, Verified 04/25/24 16:17) swelling, rash Medication List - Last Reconciled 04/25/24 by Jairon Rodriguez MD albuterol sulfate 90 mcg/actuation (Ventolin HFA) 2 puffs PO QID 30 days [BACK BRACE As directed] carisoprodol 350 mg PO QID PRN NS cetirizine 10 mg PO DAILY cholecalciferol (vitamin D3) 50 mcg PO DAILY 90 days fluocinonide 0.05% 1 appl topical BID PRN fluticasone propionate 50 mcg/actuation 1 spray intranasal DAILY [HIP IMMOBILIZER As directed] ibuprofen 600 mg PO Q6H PRN inhalational spacing device As directed ipratropium-albuterol 0.5 mg-3 mg(2.5 mg base)/3 mL 3 mL inhalation Q4-6H PRN levetiracetam (Keppra) 500 mg PO Q12H montelukast (Singulair) 10 mg PO DAILY morphine 15 mg PO Q6H PRN 28 days morphine ER 30 mg PO Q12H 28 days naloxone 4 mg/actuation (Narcan) 4 mg intranasal Q2M PRN [NEBULIZER and all related supplies Use as directed] ondansetron 4 mg PO Q8H PRN Symbicort 160-4.5 mcg/actuation (budesonide-formoterol) 2 puffs inhalation BID NS Tobacco use date assessed: 04/25/24 Dental Screening Dental Screen Date: 04/25/24 Did you have a dental visit in the last 12 months?: No Did you have a dental problem in the last 6 months where you did not have access to dental care?: No Was dental information given to patient?: No HPI 3 Month F/U antionette 01/13 HPI0 Details Patient comes in today for his follow up visit for his multiple chronic medical issues, including his asthma, epilepsy, osteoporosis, hyperlipidemia and GERD States that he is currently feeling a lot better than he did about a month ago, when he went to the ER with increasing cough and congestion and tested positive for influenza A He is still experiencing frequent symptoms of his chronic sinusitis and he continues to follow up with ENT at [facility] in [place] and thinks that his ENT is planning on performing another sinus surgery on him in a few months but that is still not definite States that his chronic low back pain and joint pains remain adequately controlled on his current Rx but he had trouble getting his last Rx filled at his local pharmacy - states that there is a pharmacist there that likes to play god and has a lot of negative and nasty things to say to him about being on so much pain meds He also reportedly says that the pharmacist also mentioned that our practice is supposedly well-known to him about writing so much pain med prescriptions for patients that he knows have no business being on pain meds Patient states that he is tired of dealing with that pharmacist every time he has to refill his Rx and is considering switching to another pharmacy, even if he has to drive longer distances to get to another pharmacy He denies any fever or sore throat at present; denies any dizziness but still has on and off headaches related to his chronic sinus congestion Denies any chest pains, no increased SOB No nausea/vomiting, no abdominal pain No change in bowel habits noted He has no follow up labs done recently but recalls having labs done at the ER when he was there last month [facility] Medical History Vitamin D deficiency Obesity (BMI 30-39.9) Depression Epilepsy Osteoporosis GERD without esophagitis Lumbar degenerative disc disease Pure hypercholesterolemia Asthma Scalp psoriasis Exposure to STD Chronic pansinusitis Surgical History History of surgery History of sinus surgery Family History Father Medical history unknown Mother Cancer Social History Housing: House Alcohol intake: never Patient Tobacco Use Status: Never used Tobacco e-Cigarette/Vaping Use: Never Used Second Hand Smoke Exposure: Yes service: No Current occupational status: employed Current occupation: [employer] Cognitive needs: No Hearing needs: No Vision needs: No Questionnaire PHQ-9 Over the last 2 weeks, how often have you been bothered by any of the following problems? 1. Little interest or pleasure in doing things: several days 2. Feeling down, depressed, or hopeless: several days 3. Trouble falling or staying asleep, or sleeping too much: several days 4. Feeling tired or having little energy: several days 5. Poor appetite or overeating: not at all 6. Feeling bad about yourself - or that you are a failure or have let yourself or your family down: not at all 7. Trouble concentrating on things, such as reading the newspaper or watching television: not at all 8. Moving or speaking so slowly that other people could have noticed. Or the opposite - being so fidgety or restless that you have been moving around a lot more than usual: not at all 9. Thoughts that you would be better off or of hurting yourself in some way: not at all Total score: 4 Depression Screening Interpretation: Positive Depression Screening Follow-up: Existing condition and Follow-up Visit Requested Depression Screening Done: Yes 40010 - PHQ-9 Billing: Yes Source: Developed by Drs. Wily Narayanan, Emily Reynaga, Damian Kan and colleagues, with an educational chi from [employer]. Thrive Questionnaire Date Thrive assessed: 04/25/24 I am a: Patient What is your living situation today?: I have a steady place to live Within the past 12 months, did the food you bought not last and you didn't have the money to get more?: Never true Within the past 12 months, did you worry whether your food would run out before you got money to buy more?: Never true Do you have trouble paying for medicines?: No Do you have trouble getting transportation to medical appointments?: No Do you have trouble paying your heating and electricity bill?: No Do you have trouble taking care of your child, family member or friend?: No Do you have trouble with day-to-day activities such as bathing, preparing meals, shopping, managing finances, etc.?: No Are you currently unemployed and looking for a job?: No Are you interested in more education?: No Please select the resources that you would like help with: None Currently or been in a relationship where the following occur: No concerns reported THRIVE Score: 0 AUDIT C Alcohol Use Questionnaire (AUDIT-C) 1. How often do you have a drink containing alcohol?: Never 3. How often do you have six or more drinks on one occasion?: Never Total Score: 0 Score Reviewed/Action Taken: Yes DIMITRY-7 AMB Questionnaire DIMITRY-7 Date DIMITRY - 7 assessed: 04/25/24 Feeling nervous, anxious, or on edge: 0 = Not at all Not being able to stop or control worryin = Not at all Worrying too much about different things: 0 = Not at all Trouble relaxin = Not at all Being so restless that it is hard to sit still: 0 = Not at all Becoming easily annoyed or irritable: 0 = Not at all Feeling afraid as if something awful might happen: 0 = Not at all Total DIMITRY-7 score (0-4 normal; 5-9 mild; 10-14 moderate; 15-21 severe): 0 Source: Developed by Drs. Wily Narayanan, Emily Reynaga, Damian Kan and colleagues, with an educational chi from [employer]. DIMITRY-7 Assessment Billing DIMITRY-7 Assessment Tool: DIMITRY-7 Assessment 18056 Review of Systems Const Denies chills, Reports fatigue, Denies fever(s) and Reports headache(s) (on and off) ENT Denies dysphagia, Denies dizziness, Reports headache(s) (on and off), Reports nasal congestion (chronic), Reports neck pain, Denies odynophagia and Denies sore throat Card Denies chest pain, Denies palpitations and Reports dyspnea on exertion (occasionally, mostly when his asthma flares up) Resp Denies chest congestion, Denies cough, Reports dyspnea on exertion (occasionally, mostly when his asthma flares up) and Denies wheezing GI Denies abdominal pain, Denies constipation, Denies dysphagia, Denies heartburn, Denies diarrhea, Denies nausea, Denies odynophagia and Denies vomiting Denies difficulty urinating, Denies dysuria, Denies nocturia and Denies urinary frequency Musc Reports back pain (chronic - increasing), Reports arthralgias (on and off in the right knee), Denies joint swelling and Reports neck pain Skin/Breast Denies rash Neuro Denies dizziness and Reports headache(s) (on and off) Endo Reports fatigue and Denies palpitations Alexei/Lymph Details: (+) on and off swelling of the left leg and left foot Aller/Immun Denies wheezing Physical exam (Primary Care) Vital Signs: Last Vital Signs Pulse 84 04/25/24 15:49 BP 122/80 04/25/24 15:49 Pulse Ox 96 04/25/24 15:49 Oxygen Delivery Method Room Air 04/25/24 15:49 BMI result Body Mass Index 41.9 Tobacco/Smoking Status: Tobacco use Status Tobacco use date assessed 04/25/24 04/25/24 15:55 Patient Tobacco Use Status Never used Tobacco 04/25/24 15:55 e-Cigarette/Vaping Use Never Used 04/25/24 15:55 PHQ-9: PHQ-9 Score PHQ-9: Total score 4 04/25/24 16:20 Depression Screening Interpretation: Positive Depression Screening Follow-up: Existing condition and Follow-up Visit Requested Thrive Assessment: Date of Thrive Assessment Date Thrive assessed 04/25/24 04/25/24 15:55 Currently or been in a relationship where the following occur: No concerns reported Const General: no acute distress and alert HENMT Ears: TM's normal bilaterally and EAC's normal Face and sinus: No sinus tenderness (but (+) pressure, especially on the left side) Throat: Yes posterior oropharynx normal and Yes tonsils normal (no TP congestion noted) Neck Neck: Yes supple and No lymphadenopathy Thyroid: Thyroid normal Resp Auscultation: clear to auscultation bilaterally, no crackles, no rales and no wheezes Cardio Rate: regular rate Rhythm: regular rhythm Heart sounds: no murmurs GI Palpation (GI): Soft to palpation and nontender Auscultation: normal bowel sounds General: Yes no CVA tenderness Back/Spine/Pelvis Back: no CVA tenderness Thoracic/Lumbar Spine: lumbar spinal tenderness Sacrum: no ecchymosis Skin Rashes: no rashes Extrem General: Yes no clubbing, cyanosis or edema Right lower extremity: hip/thigh Details: tenderness Location: of the hip and knee Details: tenderness; no swelling Results Reviewed Results Reviewed: Laboratory Tests 03/21/24 03/21/24 15:11 15:34 WBC 7.3 Hgb 14.8 Hct 43.0 Plt Count 143 L D Sodium 137 Potassium 4.0 Creatinine 0.95 Estimated GFR > 60 Random Glucose 106 Lactic Acid 0.9 Calcium 8.6 D AST 48 H ALT 51 H Lipase 8 Coding Level of Care Code Est Pt Level 4 (70586) Complex EM visit Add On G2211 Diagnoses Nonintractable epilepsy without status epilepticus, unspecified epilepsy type G40.909 Epilepsy type: unspecified Intractability: not intractable Status epilepticus: without status epilepticus Moderate persistent asthma without complication J45.40 Asthma severity: moderate Asthma persistence: persistent Asthma complication type: uncomplicated Pure hypercholesterolemia E78.00 Degeneration of intervertebral disc of lumbar region with discogenic back pain and lower extremity pain M51.362 Disc-related pain type: discogenic back pain and lower extremity pain Psoriasis L40.9 Vitamin D deficiency E55.9 Chronic pansinusitis J32.4 Osteoporosis without current pathological fracture, unspecified osteoporosis type M81.0 Osteoporosis type: unspecified Presence of current pathological fracture: without current pathological fracture GERD without esophagitis K21.9 Episode of recurrent major depressive disorder, unspecified depression episode severity F33.9 Depression Type: major depressive disorder Major depression recurrence: recurrent Active/Remission status: currently active Major depression episode severity: unspecified Obesity (BMI 30-39.9) E66.9 Additional Codes DIMITRY-7 Assessment Billing - DIMITRY-7 Assessment Tool: DIMITRY-7 Assessment [id number] ([id number]) PHQ-9 - 22923 - PHQ-9 Billing: Yes ([id number]) Assessment & Plan Assessment & Plan (1) Epilepsy: Code(s): G40.909 - Epilepsy, unspecified, not intractable, without status epilepticus Category: Medical Qualifiers: Epilepsy type: unspecified Intractability: not intractable Status epilepticus: without status epilepticus Qualified Code(s): G40.909 - Epilepsy, unspecified, not intractable, without status epilepticus Plan: Patient states that he has not had any seizures since he was 4 y/o until his isolated episode last year on 05/21/2023 He has not had any recurrence since so unclear at this time what triggered his most recent seizure episode Head CT done at the ER last year showed no acute intracranial pathology Follow up with neurology in [place] as scheduled (2) Asthma: Code(s): J45.909 - Unspecified asthma, uncomplicated Category: Medical Qualifiers: Asthma severity: moderate Asthma persistence: persistent Asthma complication type: uncomplicated Qualified Code(s): J45.40 - Moderate persistent asthma, uncomplicated Plan: Patient's asthma appears to be under control again lately Continue Symbicort 160-4.5 mcg 2 inhalations BID and Albuterol Sulfate HFA Aerosol Solution, 108 (90 Base) MCG/ACT, 2 inhalations Q 6 hours PRN (3) Pure hypercholesterolemia: Code(s): E78.00 - Pure hypercholesterolemia, unspecified Category: Medical Plan: He has not had his cholesterol levels checked since last March 2023, when his total cholesterol was still elevated at 218 mg/dl and LDL cholesterol was also up at 156 mg/dl Reinforced low cholesterol diet Will have him recheck his labs and fasting lipids in 4 months for follow up (4) Lumbar degenerative disc disease: Code(s): M51.36 - Other intervertebral disc degeneration, lumbar region Category: Medical Qualifiers: Disc-related pain type: discogenic back pain and lower extremity pain Qualified Code(s): M51.362 - Other intervertebral disc degeneration, lumbar region with discogenic back pain and lower extremity pain Plan: Reinforced activity and weight lifting restrictions Patient had MRI of the brain done about 3 years ago as neurology wanted to be certain that his right leg (radicular) symptoms are not due to MS - MRI reportedly came back normal Continue MS Contin ER 30 MG Q 12 hours, Morphine Sulfate 15 MG 3 to 4 times a day as needed for increased pain and Soma 350 MG four times a day as needed (5) Psoriasis: Code(s): L40.9 - Psoriasis, unspecified Category: Medical Plan: Continue Fluocinonide 0.05% cream apply BID PRN (6) Vitamin D deficiency: Code(s): E55.9 - Vitamin D deficiency, unspecified Category: Medical Plan: Continue Vitamin D3 2000 units QD (7) Chronic pansinusitis: Comment: S/P maxillary antrostomy and total ethmoidectomy back in September 2018, with significant improvement of his chronic symptoms initially - symptoms have been recurring frequently since Code(s): J32.4 - Chronic pansinusitis Category: Medical Plan: Patient continues to experience frequent/recurrent sinus congestion and pain despite past surgical intervention He was seen and evaluated by ENT at [facility] in [place] for his chronic sinus congestion and was scheduled for corrective surgery there a couple of years ago but patient canceled his surgery due to housing issues with his family, which he states is still ongoing as they are currently still living out of a local hotel and still awaiting housing assistance/placement States that he will call them to reschedule his surgery once everything has settled down and he feels ready to get the surgery done (8) Osteoporosis: Code(s): M81.0 - Age-related osteoporosis without current pathological fracture Category: Medical Qualifiers: Osteoporosis type: unspecified Presence of current pathological fracture: without current pathological fracture Qualified Code(s): M81.0 - Age- related osteoporosis without current pathological fracture Plan: BMD done back in 2015 showed significantly low BMD for his age Patient has not been taking his Actonel for a while now as he was unable to tolerate it Follow up with endocrinology as scheduled for management of his osteoporosis (9) GERD without esophagitis: Code(s): K21.9 - Gastro-esophageal reflux disease without esophagitis Category: Medical Plan: Dietary restrictions reinforced (10) Depression: Code(s): F32.9 - Major depressive disorder, single episode, unspecified Category: Medical Qualifiers: Depression Type: major depressive disorder Major depression recurrence: recurrent Active/Remission status: currently active Major depression episode severity: unspecified Qualified Code(s): F33.9 - Major depressive disorder, recurrent, unspecified Plan: He was on Sertraline HCl Tablet, 50 MG QD in the past but patient apparently stopped taking it at some point although he is not sure exactly when States that he currently feels okay without any Rx for his mood Follow-up with Psychiatry as scheduled (11) Obesity (BMI 30-39.9): Code(s): E66.9 - Obesity, unspecified Category: Medical Plan: Reinforced diet; exercise and weight loss are not realistic expectations at this time due to his physical issues and multiple comorbidities Plan Follow up in 4 months Orders: Orders Comprehensive [place]. Panel Fast 4 Months E78.00 - Pure hypercholesterolemia, unspecified Vitamin D 25-OH Total 4 Months E55.9 - Vitamin D deficiency, unspecified Complete Blood Count Auto Diff 4 Months D64.9 - Anemia, unspecified Lipid Panel 4 Months E78.00 - Pure hypercholesterolemia, unspecified TSH reflex Free T4 4 Months E78.00 - Pure hypercholesterolemia, unspecified UA CC w/rflx Micro + Cult 4 Months R30.0 - Dysuria
== END 2024-04-25 16:31 | disposition home or self-care (01) ==
LOC: HO.HMCH 15:30
PROVIDERS: PCP Internal Medicine; Visit Provider Internal Medicine
DX: G40.909 Epilepsy, unspecified, not intractable, without status epilepticus (principal); F33.9 Major depressive disorder, recurrent, unspecified; E66.9 Obesity, unspecified; Z68.41 Body mass index [BMI] 40.0-44.9, adult; J45.40 Moderate persistent asthma, uncomplicated; E78.00 Pure hypercholesterolemia, unspecified; M51.362 Other intervertebral disc degeneration, lumbar region with discogenic back pain and lower extremity pain; L40.9 Psoriasis, unspecified; E55.9 Vitamin D deficiency, unspecified; J32.4 Chronic pansinusitis; M81.0 Age-related osteoporosis without current pathological fracture; K21.9 Gastro-esophageal reflux disease without esophagitis

== ENCOUNTER → 2024-04-25 15:30 | Outpatient (BNVA) | payer OTHER, SELFPAY | PROVIDERS: PCP Internal Medicine; Visit Provider Internal Medicine | DX: G40.909 Epilepsy, unspecified, not intractable, without status epilepticus (principal); J45.40 Moderate persistent asthma, uncomplicated; E78.00 Pure hypercholesterolemia, unspecified; M51.362 Other intervertebral disc degeneration, lumbar region with discogenic back pain and lower extremity pain; L40.9 Psoriasis, unspecified; E55.9 Vitamin D deficiency, unspecified; J32.4 Chronic pansinusitis; M81.0 Age-related osteoporosis without current pathological fracture; K21.9 Gastro-esophageal reflux disease without esophagitis; F33.9 Major depressive disorder, recurrent, unspecified; E66.9 Obesity, unspecified; Z68.41 Body mass index [BMI] 40.0-44.9, adult; Z71.3 Dietary counseling and surveillance | CPT/HCPCS: 96127; 99212 ==

== ENCOUNTER 2024-11-28 15:31 | Outpatient (AMB) | payer OTHER, SELFPAY ==
[2024-11-28 15:47] VITALS: BP 130/86; PULSE 90; O2SAT 95; BMI 43.5
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
--- OUTSIDE RECORDS SUMMARY | 2024-11-28 16:59 | XMS_ITS | Clinical Summary ---
Author Organization [facility] Address [address] [place] [address] Care Team Providers Care Bid Writer Name Role Phone Jairon Rodriguez Primary Care Provider [phone] Allergies Active Allergy Reactions Criticality Noted Date [...] 126 05/18/2022 3:01 PM EDT Temperature 36.9 C (98.4 F) 05/18/2022 3:01 PM EDT Respiratory Rate 18 03/23/2022 4:54 PM EST [...] (2 - Td or Tdap) 02/28/2021 02/28/2011 Alcohol/Substance Use Screening 02/06/2024 Depression Screening and Follow-Up 02/06/2024 Social Drivers of Health Jennyfer ual Screening 02/06/2024 COVID-19 Vaccine (1 - 2024-2 6 season) 2024 Influenza Vaccine (#1) 2024 RSV Vaccine (60+ years old a nd patients) (1 - 1-dose 75+ series) 01/27/2059 Pneumococcal Vaccine: Pediat robert (0-5 Years) and At-Risk Patients (6-50 Years) Aged Out No longer eligible b ased on patient's age to complete this topic Medical Devices Implanted Type Area Pulmonologist Intensivist Device Identifier Shelf Expiration Date Model / Serial / Lot Implant Sinus Mometasone Furoate Contour 8mm Propel - [id number] Implanted:Qty: 1 on 03/13/2022 by Guevara Rose MD at [facility] Implant Left: Sinus [employer] 10/07/2022 [id number] / / [id number] Insurance [employer] MEDICAID Advance Directives * Full Code (Latest Code Status on File) Date Activated Date Inactivated Comments 03/13/2022 10:10 AM 03/13/2022 6:37 PM Care Teams Bid Writer Relationship Specialty Start Date End Date Jairon Rodriguez [address] [place] [address] [place] [address] PCP - General Internal Medicine 12/01/21
== END 2024-11-28 16:29 | disposition home or self-care (01) ==
LOC: HO.HMCH 15:32
PROVIDERS: PCP Internal Medicine; Visit Provider Internal Medicine
DX: J32.4 Chronic pansinusitis (principal); G40.909 Epilepsy, unspecified, not intractable, without status epilepticus; E66.9 Obesity, unspecified; Z68.41 Body mass index [BMI] 40.0-44.9, adult; J45.40 Moderate persistent asthma, uncomplicated; E78.00 Pure hypercholesterolemia, unspecified; M51.369 Other intervertebral disc degeneration, lumbar region without mention of lumbar back pain or lower extremity pain; L40.9 Psoriasis, unspecified; E55.9 Vitamin D deficiency, unspecified; M81.0 Age-related osteoporosis without current pathological fracture; K21.9 Gastro-esophageal reflux disease without esophagitis; F33.9 Major depressive disorder, recurrent, unspecified

== ENCOUNTER 2024-11-28 15:31 | Outpatient (REF) | payer OTHER, SELFPAY ==
[2024-11-28 16:45] LABS: MANUAL DIFF FLAG NO
[2024-11-28 17:09] LABS: Hematocrit 49.3 % (42.0-52.0); Hemoglobin 16.9 g/dl (14.0-18.0); Imm Gran Abs Auto 0.03 X10*3/uL (0.00-0.03); Imm Gran Pct Auto 0.3 % (0.0-0.4); Lymphocytes Absolute Auto 4.7 X10*3/uL (1.2-4.9); Mean Corpuscular HGB Conc 34.3 g/dl (31.0-36.0); Mean Corpuscular Hemoglobin 29.2 pg (27.0-33.0); Mean Corpuscular Volume 85.1 fL (80.0-98.0); NRBC Abs Auto 0.000 X10*3/uL (0.0-0.012); NRBC Pct Auto 0.0 /100WBC (0.0-0.2); Platelet Count 211 X10*3/uL (160-400); Red Blood Count 5.79 X10*6/uL (4.60-5.80); White Blood Count 10.3 X10*3/uL (4.8-10.8)
[2024-11-28 17:25] LABS: Appearance Urine Clear; Glucose Urine UA Negative (Negative); PH 5.5 (5.0-9.0); Specific Gravity - Urine 1.020 (1.005-1.025)
[2024-11-28 17:56] LABS: Alanine Aminotransferase 50 U/L (0-40); Albumin Level 4.5 g/dL (3.5-5.0); Alkaline Phosphatase 77 U/L (39-117); Anion Gap 13 (12-20); Aspartate Amino Transferase 39 U/L (5-37); Blood Urea Nitrogen 13 mg/dL (9-16); Calcium 9.2 mg/dL (8.4-10.2); Carbon Dioxide 25 mmol/L (22-29); Chloride 107 mmol/L (96-108); Cholesterol 217 mg/dL (<200); Estimated Glomerular Filt Rate > 60; HDL Cholesterol 36 mg/dL (>40); Potassium 3.9 mmol/L (3.3-5.1); Sodium 141 mmol/L (135-145); Total Protein 7.2 g/dL (6.5-8.0); Triglycerides 111 mg/dL (<150)
== END 2024-11-28 15:32 | disposition home or self-care (01) ==
LOC: HO.LAB 15:31
PROVIDERS: PCP Internal Medicine; Visit Provider Internal Medicine
DX: R30.0 Dysuria (principal); D64.9 Anemia, unspecified; E78.00 Pure hypercholesterolemia, unspecified; E55.9 Vitamin D deficiency, unspecified; J32.4 Chronic pansinusitis; J45.40 Moderate persistent asthma, uncomplicated; G40.909 Epilepsy, unspecified, not intractable, without status epilepticus; L40.9 Psoriasis, unspecified; M51.369 Other intervertebral disc degeneration, lumbar region without mention of lumbar back pain or lower extremity pain; M81.0 Age-related osteoporosis without current pathological fracture; K21.9 Gastro-esophageal reflux disease without esophagitis; F33.9 Major depressive disorder, recurrent, unspecified; E66.9 Obesity, unspecified; Z68.41 Body mass index [BMI] 40.0-44.9, adult; Z79.899 Other long term (current) drug therapy; Z79.891 Long term (current) use of opiate analgesic
CPT/HCPCS: 36415; 80053; 80061; 81003; 82306; 84443; 85025; 96127; 99212